=== PATIENT | female | born 1975 ===

== ENCOUNTER 2018-08-03 19:32 | Observation (INO) | payer BC, SELFPAY ==
[2018-08-03 19:43] VITALS: BMI 27.1
[2018-08-03] MEDS ORDERED: Morphine 2 mg/ml ISec IVP STA (20:02)
[2018-08-03] MEDS ORDERED: Sodium Chloride 0.9% 1,000 ML IV STA (20:02)
[2018-08-03] MEDS ORDERED: DiphenhydrAMINE 50 mg/ml Inj IVP STA (20:37)
[2018-08-03] MEDS ORDERED: DiphenhydrAMINE 50 mg/ml Inj ONE (20:40)
[2018-08-03 20:50] LABS: ALB/GLOB RATIO 1.1 (1.1-1.8); ALBUMIN 4.2 g/dL (3.0-4.8); ALT/SGPT 23 U/L (7-56); AST/SGOT 32 U/L (14-36); BLOOD UREA NITROGEN 12 mg/dL (7-21); GFR NON-AFRICAN AMERICAN > 60
[2018-08-03 20:58] LABS: PH,URINE 7.5 (4.7-8.0); URINE BILIRUBIN NEGATIVE (NEGATIVE); URINE BLOOD NEGATIVE (NEGATIVE); URINE GLUCOSE (UA) NEGATIVE (NEGATIVE); URINE LEUKOCYTE ESTERASE NEGATIVE Leu/uL (NEGATIVE); URINE PROTEIN NEGATIVE mg/dL (<30 mg/dL); URINE UROBILINOGEN 0.2 E.U./dL (<1 E.U./dL)
[2018-08-03 21:03] LABS: BASO # 0.02 K/mm3 (0.0-2.0); BASO % 0.1 % (0.0-3.0); EOS % 0.1 % (1.5-5.0); GRAN # 13.49 (1.4-6.5); GRAN % 87.5 % (50.0-68.0); HEMOGLOBIN 12.9 g/dL (12.0-16.0); LYMPH # 1.4 (1.2-3.4); LYMPH % 9.1 % (22.0-35.0); MEAN CELL VOLUME 88.8 fl (80.0-105.0); MEAN CORPUSCULAR HGB CONC 33.8 g/dl (31.0-37.0); MEAN PLATELET VOLUME 10.2 fl (7.0-11.0); MONO # 0.5 (0.1-0.6); MONO % 3.2 % (1.0-6.0); RBC 4.3 10^6/uL (3.5-6.1); RED CELL DISTRIBUTION WIDTH 14.8 % (11.5-14.5); WHITE BLOOD COUNT 15.4 10^3/ul (4.5-11.0)
[2018-08-03 21:23] LABS: URINE APPEARANCE CLOUDY (CLEAR); URINE COLOR YELLOW (YELLOW)
[2018-08-03] MEDS ORDERED: Iohexol 350 MG/100 ML VIAL ONE (21:35)
[2018-08-03 22:03] LABS: URINE BACTERIA LARGE (NEG); URINE EPITHELIAL CELLS 0 - 2 /hpf (0-5); URINE WBC 0 - 2 /hpf (0-6)
--- NOTE | 2018-08-03 22:07 | ED PDOC ---
Arrival/HPI - General Historian: Patient - History of Present Illness Narrative History of Present Illness (Text): 08/03/18 22:02 43-year-old female presents today with upper abdominal pain that started at 11 AM this morning. Patient states the pain is sharp and stabbing. Patient states that the pain is across the upper abdomen. She is complaining of nausea and vomiting. No diarrhea. Patient denies chest pain or shortness of breath. She denies back pain. No medications were taken for pain at home. Patient denies dysuria or urinary frequency. She denies vaginal bleeding or discharge. Patient states she has a history of a tummy tuck. No other complaints Time/Duration: Other (11am) Symptom Onset: Sudden Symptom Course: Worsening Quality: Stabbing Severity Level: Moderate <Karla Reynolds - Last Filed: 08/04/18 01:18> <Gomez Valdez - Last Filed: 08/04/18 06:00> - General Chief Complaint: GI Problem Time Seen by Provider: 08/03/18 19:55 Past Medical History - Provider Review Nursing Documentation Reviewed: Yes - Travel History Have you recently traveled outside [place] w/in the past 3 mons?: No - Past History Past History: Non-Contributing - Infectious Disease Hx of Infectious Diseases: None - Tetanus Immunization Tetanus Immunization: Unknown - Psychiatric Hx Depression: No Hx Emotional Abuse: No Hx Physical Abuse: No Hx Substance Use: No - Surgical History Hx Section: Yes (x3) Other/Comment: 'Lipectomy' - Anesthesia Hx Anesthesia: Yes Hx Anesthesia Reactions: No - Suicidal Assessment Feels Threatened In Home Enviroment: No <Karla Reynolds - Last Filed: 08/04/18 01:18> Family/Social History - Physician Review Nursing Documentation Reviewed: Yes Family/Social History: Unknown Family HX Smoking Status: Never Smoked Hx Alcohol Use: No Hx Substance Use: No Hx Substance Use Treatment: No <Karla Reynolds - Last Filed: 08/04/18 01:18> Allergies/Home Meds <Karla Reynolds - Last Filed: 08/04/18 01:18> <Gomez Valdez - Last Filed: 08/04/18 06:00> Allergies/Adverse Reactions: Allergies morphine Adverse Reaction (Verified 08/04/18 02:02) ITCHING Review of Systems - Review of Systems Constitutional: absent: Fatigue, Fevers Respiratory: absent: SOB, Cough Cardiovascular: absent: Chest Pain, Palpitations Gastrointestinal: Abdominal Pain, Nausea, Vomiting. absent: Constipation, Meeta rrhea Genitourinary Female: absent: Dysuria, Frequency, Hematuria Musculoskeletal: absent: Arthralgias, Back Pain, Neck Pain Skin: absent: Rash, Pruritis Neurological: absent: Headache, Dizziness Psychiatric: absent: Anxiety, Depression, Suicidal Ideation <Karla Reynolds - Last Filed: 08/04/18 01:18> Physical Exam Vital Signs Reviewed: Yes Vital Signs Temp Pulse Resp BP Pulse Ox 08/03/18 21:51 65 18 121/74 98 08/03/18 19:43 97.9 F 63 22 116/73 99 Temperature: Afebrile Blood Pressure: Normal Pulse: Regular Respiratory Rate: Normal Appearance: Positive for: Well-Appearing, Non-Toxic, Comfortable Pain Distress: None Mental Status: Positive for: Alert and Oriented X 3 - Systems Exam Head: Present: Atraumatic Mouth: Present: Moist Mucous Membranes Neck: Present: Normal Range of Motion Respiratory/Chest: Present: Clear to Auscultation, Good Air Exchange. No: R espiratory Distress, Accessory Muscle Use Cardiovascular: Present: Regular Rate and Rhythm, Normal S1, S2. No: Murmurs Abdomen: Present: Tenderness (+ RUQ/LUQ and epigastric tenderness, RLQ tenderness. periumbilical tenderness). No: Distention, Rebound, Guarding Back: Present: Normal Inspection. No: CVA Tenderness, Midline Tenderness, Paraspinal Tenderness Upper Extremity: Present: Normal ROM Lower Extremity: Present: Normal ROM Neurological: Present: GCS=15, Speech Normal Skin: Present: Warm, Dry, Normal Color. No: Rashes Psychiatric: Present: Alert, Oriented x 3 <Karla Reynolds - Last Filed: 08/04/18 01:18> Vital Signs Temp Pulse Resp BP Pulse Ox 08/04/18 01:51 20 08/03/18 21:51 65 18 121/74 98 08/03/18 19:43 97.9 F 63 22 116/73 99 <Gomez Valdez - Last Filed: 08/04/18 06:00> Medical Decision Making ED Course and Treatment: 08/03/18 22:05 Patient is nontoxic well appearing with stable vital signs presenting with severe abdominal pain pt given morphine for pain; developed pruritis and slight rash; benadryl given IV> CBC wbc;15.4 CMP wnl Lipase wnl Urinalysis + nitrates Ultrasound: FINDINGS: LIVER: Unremarkable. GALLBLADDER: No gallstone. No gallbladder wall thickening. No pericholecystic fluid. COMMON BILE DUCT: No dilation. 3.6 mm. PANCREAS: Unremarkable where visualized. The distal pancreas is obscured by overlying bowel gas. KIDNEYS: Unremarkable. Normal renal contours. No renal mass or calculus. No hydronephrosis. SPLEEN: Unremarkable. AORTA: No aneurysm. IVC: Unremarkable as visualized. MISCELLANEOUS: No other significant findings identified. IMPRESSION: Unremarkable complete abdominal ultrasound. CAT scan: Findings:this study is extremely limited secondary to respiratory motion except for the retroperitoneal structures.the gallbladder and solid abdominal viscera appear intact. There is a significant amount of free pelvic fluid.endometrial cavity appears widened by fluid.both kidneys uptake contrast symmetrically.the appendix is nonvisualized certainty. There are no right lower quadrant inflammatory changes. Impression: Very limited study. Free pelvic fluid. will start zosyn and flagyl IV. Patient reassessment: pt with continued pain; pain has now migrated to lower abdomen. case discussed with surgical garment fitter; who saw patient at bedside. He reviewed CT. he is concerned for appendicitis. case discussed with dr. coombs; accepts observational status admission. Case was discussed with Dr. Hoffman in depth; Impression: Abdominal pain r/o appendicitis. admit observational status dr. coombs. Reassessment Condition: Re-examined, Unchanged - Lab Interpretations Lab Results: 08/03/18 20:24 08/03/18 20:24 Lab Results 08/03/18 20:24: Lipase 63 08/03/18 20:24: Urine Color Yellow, Urine Appearance Cloudy, Urine pH 7.5, Ur Specific [place] 1.015, Urine Protein Negative, Urine Glucose (UA) Negative, Urine Ketones 40 H, Urine Blood Negative, Urine Nitrate Positive H, Urine Bilirubin Negative, Urine Urobilinogen 0.2, Ur Leukocyte Esterase Negative, Urine RBC Pending, Urine WBC Pending 08/03/18 20:24: WBC 15.4 H, RBC 4.30, Hgb 12.9, Hct 38.2, MCV 88.8, MCH 30.0, MCHC 33.8, RDW 14.8 H, Plt Count 214, MPV 10.2, Gran % 87.5 H, Lymph % (Auto) 9.1 L, [place] % (Auto) 3.2, Eos % (Auto) 0.1 L, Baso % (Auto) 0.1, Gran # 13.49 H, Lymph # (Auto) 1.4, [place] # (Auto) 0.5, Eos # (Auto) 0.0, Baso # (Auto) 0.02 08/03/18 20:24: Sodium 137, Potassium 3.7, Chloride 108 H, Carbon Dioxide 18 L, Anion Gap 15, BUN 12, Creatinine 0.7, Est GFR ( Amer) > 60, Est GFR (Non- Af Amer) > 60, Random Glucose 104, Calcium 9.0, Total Bilirubin 0.6, AST 32, ALT 23, Alkaline Phosphatase 49, Total Protein 8.2, Albumin 4.2, Globulin 3.9, Albumin/Globulin Ratio 1.1 - RAD Interpretation Radiology Orders: 08/03/18 20:01 ABDOMEN COMPLETE [US] Stat 08/03/18 21:27 ABD & PELVIS IV CONTRAST ONLY [CT] Stat - Medication Orders Current Medication Orders: Discontinued Medications Diphenhydramine HCl (Benadryl) 50 mg IVP STAT STA Stop: 08/03/18 20:38 Last Admin: 08/03/18 20:41 Dose: 50 mg IVP Administration Document 08/03/18 20:41 W[place] (Rec: 08/03/18 20:41 HI [id number]) Charges for Administration # of IVP Administrations 1 Sodium Chloride (Sodium Chloride 0.9%) 1,000 mls @ 999 mls/hr IV .Q1H1M STA Stop: 08/03/18 21:02 Last Admin: 08/03/18 20:37 Dose: 999 mls/hr eMAR Start Stop Document 08/03/18 20:37 SS (Rec: 08/03/18 20:37 SS [facility] [id number] Intravenous Solution Start Date 08/03/18 Start Time 20:37 End Date 08/03/18 End time 21:37 Total Infusion Time 60 Morphine Sulfate (Morphine) 2 mg IVP STAT STA Stop: 08/03/18 20:03 Last Admin: 08/03/18 20:36 Dose: 2 mg MAR Pain Assessment Document 08/03/18 20:36 SS (Rec: 08/03/18 20:37 SS [place] [id number]) Pain Reassessment Is this a pain reassessment? No IVP Administration Document 08/03/18 20:36 SS (Rec: 08/03/18 20:37 SS [place] [id number]) Charges for Administration # of IVP Administrations 1 Ondansetron HCl (Zofran Inj) 4 mg IVP STAT STA Stop: 08/03/18 20:05 Last Admin: 08/03/18 20:37 Dose: 4 mg IVP Administration Document 08/03/18 20:37 SS (Rec: 08/03/18 20:37 SS [place] [id number]) Charges for Administration # of IVP Administrations 1 Pantoprazole Sodium (Protonix Inj) 40 mg IVP STAT STA Stop: 08/03/18 20:03 Last Admin: 08/03/18 20:37 Dose: 40 mg IVP Administration Document 08/03/18 20:37 SS (Rec: 08/03/18 20:37 SS [place] [id number]) Charges for Administration # of IVP Administrations 1 <Karla Reynolds T - Last Filed: 08/04/18 01:18> - Lab Interpretations Lab Results: 08/03/18 20:24 08/03/18 20:24 Lab Results 08/03/18 20:24: Lipase 63 08/03/18 20:24: Urine Color Yellow, Urine Appearance Cloudy, Urine pH 7.5, Ur Specific [place] 1.015, Urine Protein Negative, Urine Glucose (UA) Negative, Urine Ketones 40 H, Urine Blood Negative, Urine Nitrate Positive H, Urine Bilirubin Negative, Urine Urobilinogen 0.2, Ur Leukocyte Esterase Negative, Urine RBC 1 - 3, Urine WBC 0 - 2, Ur Epithelial Cells 0 - 2, Urine Bacteria Large 08/03/18 20:24: WBC 15.4 H, RBC 4.30, Hgb 12.9, Hct 38.2, MCV 88.8, MCH 30.0, MCHC 33.8, RDW 14.8 H, Plt Count 214, MPV 10.2, Gran % 87.5 H, Lymph % (Auto) 9.1 L, [place] % (Auto) 3.2, Eos % (Auto) 0.1 L, Baso % (Auto) 0.1, Gran # 13.49 H, Lymph # (Auto) 1.4, [place] # (Auto) 0.5, Eos # (Auto) 0.0, Baso # (Auto) 0.02 08/03/18 20:24: Sodium 137, Potassium 3.7, Chloride 108 H, Carbon Dioxide 18 L, Anion Gap 15, BUN 12, Creatinine 0.7, Est GFR ( Amer) > 60, Est GFR (Non- Af Amer) > 60, Random Glucose 104, Calcium 9.0, Total Bilirubin 0.6, AST 32, ALT 23, Alkaline Phosphatase 49, Total Protein 8.2, Albumin 4.2, Globulin 3.9, Albumin/Globulin Ratio 1.1 - RAD Interpretation Radiology Orders: 08/03/18 20:01 ABDOMEN COMPLETE [US] Stat 08/03/18 21:27 ABD & PELVIS IV CONTRAST ONLY [CT] Stat - Medication Orders Current Medication Orders: Metronidazole (Flagyl) 500 mg in 100 mls @ 100 mls/hr IVPB Q6 BRANDI; Protocol Last Admin: 08/04/18 05:28 Dose: 100 mls/hr eMAR Start Stop Document 08/04/18 05:28 FC (Rec: 08/04/18 05:28 FC [id number]) Intravenous Solution Start Date 08/04/18 Start Time 05:28 End Date 08/04/18 End time 06:28 Total Infusion Time 60 Ceftriaxone Sodium (Rocephin 1 Gram Ivpb) 1 gm in 100 mls @ 100 mls/hr IVPB DAILY BRANDI; Protocol Lactated Ringer's (Lactated Ringer's) 1,000 mls @ 125 mls/hr IV .Q8H BRANDI Last Admin: 08/04/18 01:55 Dose: 125 mls/hr eMAR Start Stop Document 08/04/18 01:55 SS (Rec: 08/04/18 01:55 SS [id number]) Intravenous Solution Start Date 08/04/18 Start Time 01:50 Ketorolac Tromethamine (Toradol) 30 mg IVP Q6H PRN PRN Reason: Pain, moderate (4-7) Last Admin: 08/04/18 01:50 Dose: 30 mg MAR Pain Assessment Document 08/04/18 01:50 SS (Rec: 08/04/18 01:55 SS [id number]) Pain Reassessment Is this a pain reassessment? Yes Sleep Is patient sleeping during reassessment? No Presence of Pain Presence of Pain Yes Pain Scale Used Protocol: PSCALES Pain Scale Used Numeric Location Pain Location Body Site Abdomen IVP Administration Document 08/04/18 01:50 SS (Rec: 08/04/18 01:55 SS [id number]) Charges for Administration # of IVP Administrations 1 Discontinued Medications Diphenhydramine HCl (Benadryl) 50 mg IVP STAT STA Stop: 08/03/18 20:38 Last Admin: 08/03/18 20:41 Dose: 50 mg IVP Administration Document 08/03/18 20:41 HI (Rec: 08/03/18 20:41 HI [id number]) Charges for Administration # of IVP Administrations 1 Hydromorphone HCl (Dilaudid) 0.5 mg IVP STAT STA Stop: 08/04/18 02:20 Last Admin: 08/04/18 02:30 Dose: 0.5 mg [facility] Pain Assessment Document 08/04/18 02:30 FC (Rec: 08/04/18 02:31 FC [facility] [id number] Pain Reassessment Is this a pain reassessment? No Presence of Pain Presence of Pain Yes Location Left, Right or Bilateral Bilateral Pain Location Body Site Abdomen Description Description Nausea Present Pain Behavior Guarding Facial Grimacing Aggravating Factors None Alleviating Factors/Management Medication Techniques Alleviating Factors Medication IVP Administration Document 08/04/18 02:30 FC (Rec: 08/04/18 02:31 FC [facility] [id number] Charges for Administration # of IVP Administrations 1 Re-Assess: MAR Pain Assessment Document 08/04/18 03:30 FC (Rec: 08/04/18 05:27 FC [facility] [id number] Pain Reassessment Is this a pain reassessment? Yes Sleep Is patient sleeping during reassessment? Yes Sodium Chloride (Sodium Chloride 0.9%) 1,000 mls @ 999 mls/hr IV .Q1H1M STA Stop: 08/03/18 21:02 Last Admin: 08/03/18 20:37 Dose: 999 mls/hr eMAR Start Stop Document 08/03/18 20:37 SS (Rec: 08/03/18 20:37 [place] [facility] [place] [facility] [place] Intravenous Solution Start Date 08/03/18 Start Time 20:37 End Date 08/03/18 End time 21:37 Total Infusion Time 60 Metronidazole (Flagyl) 500 mg in 100 mls @ 100 mls/hr IVPB STAT STA; Protocol Stop: 08/04/18 01:08 Piperacillin Sod/Tazobactam Sod (Zosyn 3.375 In Ns 100ml) 100 mls @ 200 mls/hr IVPB STAT STA; Protocol Stop: 08/04/18 00:38 Last Admin: 08/04/18 00:57 Dose: 200 mls/hr eMAR Start Stop Document 08/04/18 00:57 SS (Rec: 08/04/18 00:58 SS [id number]) Intravenous Solution Start Date 08/04/18 Start Time 00:58 End Date 08/04/18 End time 01:28 Total Infusion Time 30 Ketorolac Tromethamine (Toradol) 30 mg IVP Q6H PRN PRN Reason: pain Morphine Sulfate (Morphine) 2 mg IVP STAT STA Stop: 08/03/18 20:03 Last Admin: 08/03/18 20:36 Dose: 2 mg MAR Pain Assessment Document 08/03/18 20:36 SS (Rec: 08/03/18 20:37 [place] [facility] [place] Pain Reassessment Is this a pain reassessment? No IVP Administration Document 08/03/18 20:36 SS (Rec: 08/03/18 20:37 [place] [facility] [place] Charges for Administration # of IVP Administrations 1 Ondansetron HCl (Zofran Inj) 4 mg IVP STAT STA Stop: 08/03/18 20:05 Last Admin: 08/03/18 20:37 Dose: 4 mg IVP Administration Document 08/03/18 20:37 SS (Rec: 08/03/18 20:37 [place] [facility] [place] Charges for Administration # of IVP Administrations 1 Ondansetron HCl (Zofran Inj) 4 mg IVP ONCE ONE Stop: 08/04/18 02:20 Last Admin: 08/04/18 02:31 Dose: 4 mg IVP Administration Document 08/04/18 02:31 FC (Rec: 08/04/18 02:32 FC [facility] [id number] Charges for Administration # of IVP Administrations 1 Pantoprazole Sodium (Protonix Inj) 40 mg IVP STAT STA Stop: 08/03/18 20:03 Last Admin: 08/03/18 20:37 Dose: 40 mg IVP Administration Document 08/03/18 20:37 SS (Rec: 08/03/18 20:37 SS [facility] [place] Charges for Administration # of IVP Administrations 1 <Gomez Valdez - Last Filed: 08/04/18 06:00> - PA / TRUCKLOAD CHECKER / Resident Statement / has reviewed & agrees with the documentation as recorded. <Gomez Valdez - Last Filed: 08/04/18 06:00> Disposition/Present on Arrival - Present on Arrival Any Indicators Present on Arrival: No History of DVT/PE: No History of Uncontrolled Diabetes: No Urinary Catheter: No History of Decub. Ulcer: No History Surgical Site Infection Following: None - Disposition Have Diagnosis and Disposition been Completed?: Yes Disposition Time: 23:00 Patient Plan: Observation <Karla Reynolds - Last Filed: 08/04/18 01:18> <Gomez Valdez - Last Filed: 08/04/18 06:00> - Disposition Diagnosis: Abdominal pain, Leukocytosis Disposition: HOSPITALIZED Patient Problems: Current Active Problems Problem Status Onset Abdominal pain Acute Leukocytosis Acute Condition: FAIR
[2018-08-04] MEDS ORDERED: Piperacillin/Tazobact 3.375 gm 100 ML IVPB STA (00:09)
[2018-08-04] MEDS ORDERED: metroNIDAZOLE IV 500 mg/100 ml 500 MG/100 ML BAG IVPB STA (00:09)
[2018-08-04 01:08] LABS: VENOUS BLOOD GAS BASE EXCESS -3.6 mmol/L (0.0-2.0); VENOUS BLOOD GAS PO2 55 mm/Hg (30-55); VENOUS BLOOD PH 7.36 (7.32-7.43)
--- NOTE | 2018-08-04 01:16 | CP.PCM.CON ---
History of Present Illness - History of Present Illness History of Present Illness: 43F with pmh of DVT s/p abdominoplasty presents to [facility] with complaints of abdominal pain. Patient states pain began yesterday morning after eating corn cake with cheese. She reports onset of abdominal pain was about an hour after ea ting. States initially abdominal pain was vague. As time went on abdominal pain began migrating towards lower abdominal region. Pt reports having multiple bouts of non-bloody emesis. She states she also had chills. At time of examination patient reported anorexia,lower abdominal pain which was controlled with analgesics and nausea. Patient denies headaches/dizziness, chest pain, shortness of breath, dysuria. PMH: Hx of DVT ~8 months ago, treated with anticoagulation therapy for 3 months PSH: abdominoplasty Allergies: ?morphine (rash) Soc Hx: Denies smoking, drinking, illicit drug use Review of Systems - Review of Systems Review of Systems: 10 pt ROS unremarkable except as stated in HPI Past Patient History - Infectious Disease Hx of Infectious Diseases: None - Tetanus Immunizations Tetanus Immunization: Unknown - Past Social History Smoking Status: Never Smoked - PSYCHIATRIC Hx Depression: No Hx Emotional Abuse: No Hx Physical Abuse: No Hx Substance Use: No - SURGICAL HISTORY Hx Section: Yes (x3) Other/Comment: 'Lipectomy' - ANESTHESIA Hx Anesthesia: Yes Hx Anesthesia Reactions: No Meds Allergies/Adverse Reactions: Allergies Allergy/AdvReac Type Severity Reaction Status Date / Time morphine AdvReac ITCHING Verified 08/04/18 02:02 - Medications Medications: Current Medications Metronidazole (Flagyl) 500 mg in 100 mls @ 100 mls/hr IVPB Q6 BRANDI; Protocol Ceftriaxone Sodium (Rocephin 1 Gram Ivpb) 1 gm in 100 mls @ 100 mls/hr IVPB DAILY BRANDI; Protocol Lactated Ringer's (Lactated Ringer's) 1,000 mls @ 125 mls/hr IV .Q8H BRANDI Ketorolac Tromethamine (Toradol) 30 mg IVP Q6H PRN PRN Reason: pain Physical Exam - Constitutional Appears: No Acute Distress - Head Exam Head Exam: NORMOCEPHALIC - Eye Exam Eye Exam: EOMI, Normal appearance - ENT Exam ENT Exam: Mucous Membranes Moist - Respiratory Exam Respiratory Exam: NORMAL BREATHING PATTERN - Cardiovascular Exam Cardiovascular Exam: +S1, +S2 - GI/Abdominal Exam GI & Abdominal Exam: Guarding, Soft, Tenderness. absent: Distended, Firm - Rectal Exam Additional comments: lower abdominal tenderness - Neurological Exam Neurological exam: Alert, Oriented x3 - Psychiatric Exam Psychiatric exam: Normal Mood - Skin Skin Exam: Dry, Intact, Warm Results - Vital Signs Recent Vital Signs: Last Vital Signs Temp 97.9 F 08/03/18 19:43 Pulse 65 08/03/18 21:51 Resp 18 08/03/18 21:51 BP 121/74 08/03/18 21:51 Pulse Ox 98 08/03/18 21:51 - Labs Result Diagrams: 08/04/18 06:30 08/04/18 06:30 Labs: Laboratory Results - last 24 hr 08/03/18 08/03/18 08/03/18 20:24 20:24 20:24 WBC 15.4 H RBC 4.30 Hgb 12.9 Hct 38.2 MCV 88.8 MCH 30.0 MCHC 33.8 RDW 14.8 H Plt Count 214 MPV 10.2 Gran % 87.5 H Lymph % (Auto) 9.1 L [place] % (Auto) 3.2 Eos % (Auto) 0.1 L Baso % (Auto) 0.1 Gran # 13.49 H Lymph # (Auto) 1.4 [place] # (Auto) 0.5 Eos # (Auto) 0.0 Baso # (Auto) 0.02 pO2 VBG pH VBG pCO2 VBG HCO3 VBG Total CO2 VBG O2 Sat (Calc) VBG Base Excess VBG Potassium Glucose Lactate FiO2 Sodium 137 Potassium 3.7 Chloride 108 H Carbon Dioxide 18 L Anion Gap 15 BUN 12 Creatinine 0.7 Est GFR ( Amer) > 60 Est GFR (Non-Af Amer) > 60 Random Glucose 104 Calcium 9.0 Total Bilirubin 0.6 AST 32 ALT 23 Alkaline Phosphatase 49 Total Protein 8.2 Albumin 4.2 Globulin 3.9 Albumin/Globulin Ratio 1.1 Lipase Venous Blood Potassium Urine Color Yellow Urine Appearance Cloudy Urine pH 7.5 Ur Specific [place] 1.015 Urine Protein Negative Urine Glucose (UA) Negative Urine Ketones 40 H Urine Blood Negative Urine Nitrate Positive H Urine Bilirubin Negative Urine Urobilinogen 0.2 Ur Leukocyte Esterase Negative Urine RBC 1 - 3 Urine WBC 0 - 2 Ur Epithelial Cells 0 - 2 Urine Bacteria Large 08/03/18 08/04/18 20:24 00:52 WBC RBC Hgb Hct MCV MCH MCHC RDW Plt Count MPV Gran % Lymph % (Auto) [place] % (Auto) Eos % (Auto) Baso % (Auto) Gran # Lymph # (Auto) [place] # (Auto) Eos # (Auto) Baso # (Auto) pO2 55 VBG pH 7.36 VBG pCO2 38.0 L VBG HCO3 21.5 VBG Total CO2 22.7 VBG O2 Sat (Calc) 91.4 H VBG Base Excess -3.6 L VBG Potassium 4.1 Glucose 119 H Lactate 1.1 FiO2 21.0 Sodium 134.0 Potassium Chloride 107.0 Carbon Dioxide Anion Gap BUN Creatinine Est GFR ( Amer) Est GFR (Non-Af Amer) Random Glucose Calcium Total Bilirubin AST ALT Alkaline Phosphatase Total Protein Albumin Globulin Albumin/Globulin Ratio Lipase 63 Venous Blood Potassium 4.1 Urine Color Urine Appearance Urine pH Ur Specific [place] Urine Protein Urine Glucose (UA) Urine Ketones Urine Blood Urine Nitrate Urine Bilirubin Urine Urobilinogen Ur Leukocyte Esterase Urine RBC Urine WBC Ur Epithelial Cells Urine Bacteria Assessment & Plan - Assessment and Plan (Free Text) Assessment: 43F with appendicitis Plan: NPO IVF ABx Analgesics prn Anti-emetics prn Manley score 8/10, appendicitis- likely Will plan for OR for laparoscopic appendectomy possible open D/w Dr. Yasmin Edwards PGY3
[2018-08-04] MEDS: Lactated Ringer's 1,000 ML IV SCH ×2 (01:55→10:27)
[2018-08-04] MEDS ORDERED: HYDROmorphone 1 mg/ml ISec IVP STA ×2 (02:19→13:40)
[2018-08-04] MEDS: metroNIDAZOLE IV 500 mg/100 ml 500 MG/100 ML BAG IVPB SCH ×4 (05:28→23:12)
[2018-08-04] MEDS ORDERED: Bupivacaine 0.5% 50 ML IJ ONE (06:42)
[2018-08-04 07:05] LABS: BASO # 0.02 K/mm3 (0.0-2.0); BASO % 0.1 % (0.0-3.0); GRAN # 14.87 (1.4-6.5); GRAN % 81.1 % (50.0-68.0); HEMOGLOBIN 11.7 g/dL (12.0-16.0); LYMPH # 2.1 (1.2-3.4); LYMPH % 11.2 % (22.0-35.0); MEAN CELL VOLUME 88.5 fl (80.0-105.0); MEAN CORPUSCULAR HEMOGLOBIN 29.9 pg (25.0-35.0); MEAN CORPUSCULAR HGB CONC 33.8 g/dl (31.0-37.0); MEAN PLATELET VOLUME 10.3 fl (7.0-11.0); MONO # 1.4 (0.1-0.6); MONO % 7.6 % (1.0-6.0); RBC 3.91 10^6/uL (3.5-6.1); RED CELL DISTRIBUTION WIDTH 14.7 % (11.5-14.5); WHITE BLOOD COUNT 18.4 10^3/ul (4.5-11.0)
[2018-08-04] MEDS ORDERED: Midazolam 2 MG/2 ML VIAL ONE (07:11)
[2018-08-04] MEDS ORDERED: Propofol 10 mg/ml Inj (20 ML) ONE (07:11)
[2018-08-04 07:15] LABS: INR 1.1; PARTIAL THROMBOPLASTIN TIME 25.2 Seconds (25.1-36.5); PROTHROMBIN TIME 12.7 SECONDS (9.4-12.5)
[2018-08-04 07:22] LABS: BLOOD UREA NITROGEN 9 mg/dL (7-21); CALCIUM 8.2 mg/dL (8.4-10.5); GFR NON-AFRICAN AMERICAN > 60
[2018-08-04] MEDS ORDERED: Rocuronium 10 mg/ml (5 ml) ONE (07:26)
[2018-08-04] MEDS ORDERED: Neostigmine Methylsulfate 3mg/3ml Syringe IV ONE (08:09)
[2018-08-04] MEDS ORDERED: Glycopyrrolate 0.2 mg/ml (2ml vial) ONE (08:10)
--- NOTE | 2018-08-04 08:44 | PCM.SURG1 ---
Surgeon's Initial Post Op Note - Surgeon's Notes Surgeon: Dr. Hoffman Manpower Development Advisor: Dr. Macdonald Type of Anesthesia: General Endo Pre-Operative Diagnosis: acute appendicitis Operative Findings: acute appendicitis Post-Operative Diagnosis: same Operation Performed: laparoscopic appendectomy Specimen/Specimens Removed: appendix Estimated Blood Loss: EBL {In ML}: 2 Blood Products Given: N/A Drains Used: No Drains Post-Op Condition: Good Date of Surgery/Procedure: 08/04/18 Time of Surgery/Procedure: 07:30
[2018-08-04] MEDS ORDERED: HYDROmorphone 0.5 mg/0.5 ml ISec IVP PRN (08:53)
[2018-08-04] MEDS ORDERED: Lactated Ringer's 1,000 ML IV SCH (09:00)
--- NOTE | 2018-08-04 09:02 | CT ---
Date of service: 08/03/2018 PROCEDURE: CT Abdomen and Pelvis with contrast HISTORY: abd pain COMPARISON: None. TECHNIQUE: Contrast dose: 93 cc of Omni 350 Radiation dose: Total exam DLP = 680 mGy-cm. This CT exam was performed using one or more of the following dose reduction techniques: Automated exposure control, adjustment of the mA and/or kV according to patient size, and/or use of iterative reconstruction technique. FINDINGS: LOWER THORAX: Unremarkable. LIVER: Unremarkable. No gross lesion or ductal dilatation. GALLBLADDER AND BILE DUCTS: Unremarkable. PANCREAS: Unremarkable. No gross lesion or ductal dilatation. SPLEEN: Unremarkable. ADRENALS: Unremarkable. No mass. KIDNEYS AND URETERS: Unremarkable. No hydronephrosis. No solid mass. VASCULATURE: Unremarkable. No aortic aneurysm. BOWEL: Unremarkable. No obstruction. No gross mural thickening. APPENDIX: The appendix is distended and filled with fluid. The appendix also contains several appendicoliths. The appendix extends deep into the pelvis with the tip of the appendix adjacent to the rectum. Diameter 12 mm. PERITONEUM: Unremarkable. No free fluid. No free air. LYMPH NODES: Unremarkable. No enlarged lymph nodes. BLADDER: Unremarkable. REPRODUCTIVE: Unremarkable. BONES: No acute fracture. OTHER FINDINGS: There is a discrepancy with the [place] rad report. This was discussed with Dr. Rees at 9 a.m. 08/04/2018. The clinical chart shows that the patient was seen by surgery and the appendix was removed. IMPRESSION: Acute appendicitis
--- NOTE | 2018-08-04 10:14 | CARD ---
APPROVED REPORT Date of service: 08/03/2018 EKG Measurement Heart [id number] [id number] <Conclusion> Normal sinus rhythm with sinus arrhythmia Normal ECG
[2018-08-04] MEDS: cefTRIAXone 1 gm 1 GM/100 ML BAG IVPB SCH (10:27)
[2018-08-04] MEDS: Oxycodone/Acetaminophen 5/325 mg Tab PO PRN ×2 (10:34→22:28)
[2018-08-04] MEDS ORDERED: HYDROmorphone 0.5 mg/0.5 ml ISec IVP STA (13:37)
--- NOTE | 2018-08-04 14:20 | PCM.RRT ---
<Morales Pak - Last Filed: 08/04/18 14:50> SPRAY II PAINTER Nurse Assessment - Situation Date: 08/04/18 Time SPRAY II PAINTER was called: 13:22 SPRAY II PAINTER Responder Arrival Time: 13:23 SPRAY II PAINTER Location:: [address] [place] [address] Room Number: [id number] SPRAY II PAINTER Reason for Call: Chest Pain SPRAY II PAINTER Called By: RN - IV IV Inserted during SPRAY II PAINTER?: No - Respiratory Received Nebulizer Treatments:: No Was the Patient Ventilated with Bag/Mask 100% O2?: No Secretions Suctioned?: No Was the Patient Intubated?: No - Medication Medications Administered During SPRAY II PAINTER: Dilaudid - Diagnostic Test Ordered EKG: No Chest X-Ray: Yes CT Scan: Yes - Stat Labs Ordered SPRAY II PAINTER Stat Labs Ordered: ABG CPR started during SPRAY II PAINTER?: No - Vital Signs Vital Sign: Rapid Response Vital Sign Blood Pressure 138/91 Pulse Rate 112 Respiratory Rate 24 Temperature 98.2 F Oxygen Saturation 95 - Finger Stick Blood Glucose Finger Stick Blood Glucose: 95 - Constitutional Appears: In Acute Distress - Head Head Exam: ATRAUMATIC, NORMAL INSPECTION, NORMOCEPHALIC - Eyes Eye Exam: Normal appearance - Respiratory Exam Respiratory Exam: Clear to Ausculation Bilateral, NORMAL BREATHING PATTERN - Cardiovascular Exam Cardiovascular Exam: Tachycardia, +S1, +S2 - GI/Abdominal Exam GI & Abdominal Exam: Guarding, Tenderness - Neurological Exam Neurological Exam: Alert, Awake, Oriented x3 Plan - Assessment of Findings&Treatment Plan Rapid Response was called by nursing staff after patient was complaining of unbearable abdominal and neck pain. Patient had laprosopic appendectomy done earlier today. Vitals were taken, patient was tachycardic. Patient was given 1mg morphine for pain control and CT Chest with PE protocol was ordered. Surgery was made aware and patient was also examined by surgery resident who reached out to Dr. Burks. Trops were also ordered. Will continue to monitor. <Malka Bah - Last Filed: 08/09/18 11:58> SPRAY II PAINTER Nurse Assessment - Vital Signs Vital Sign: Rapid Response Vital Sign Blood Pressure 138/91 Pulse Rate 112 Respiratory Rate 24 Temperature 98.2 F Oxygen Saturation 95 Attending/Attestation - Attestation I have personally seen and examined this patient.: Yes I have fully participated in the care of the patient.: Yes I have reviewed all pertinent clinical information, including history, physical exam and plan: Yes Notes (Text): Patient seen and examined by me with resident at 1:23PM with resident 08/04/18. Case including HPI, physical exam, and assessment and plan discussed with resident. Agree with above with following additions/corrections. Rapid response called for uncontrolled neck pain and abdominal pain. Patient had appendectomy earlier today. Surgical team also at bedside. Dilaudid ordered. Patient unable to explain pain secondary to being in acute distress. Unable to obtain any history from patient. Physical exam: Gen: Awake and alert lying in bed in acute distress Cardiovascular: Tachycardic S1, S2. No murmurs, rubs, or gallops appreciated Pulmonary: Normal respiratory effort. No rhonchi, rales, or wheezing appreciated. Gastrointestinal: Soft. Mild distention. Positive generalized abdominal pain. Hypoactive bowel sounds all 4 quadrants, no guarding. Musculoskeletal: Moves all extremities.Positive cervical tenderness on right. Central nervous system: Awake and alert in acute distress. A/P: Abdominal pain/neck pain. CTA chest PE protocol ordered as patient had history of DVT. Neck CT ordered. Neuro notified. PMD notified. Will follow up results.
--- NOTE | 2018-08-04 14:51 | CT ---
Date of service: 08/04/2018 PROCEDURE: CT Abdomen and Pelvis with contrast HISTORY: intractable pain postop COMPARISON: Abdomen pelvis CT with contrast 08/03/2018 10:44 p.m.. TECHNIQUE: Following the intravenous administration of iodinated contrast material, a CT examination of the abdomen and pelvis performed from the domes of the diaphragms to the symphysis pubis with reformatted datasets provided in axial, sagittal and coronal planes. Oral contrast was not administered as per referring physician request. Coronal and sagittal reformats were generated. contrast dose: Omnipaque 350, 146 cc Radiation dose: Total exam DLP = 954.73 mGy-cm. This CT exam was performed using one or more of the following dose reduction techniques: Automated exposure control, adjustment of the mA and/or kV according to patient size, and/or use of iterative reconstruction technique. FINDINGS: LOWER THORAX: Limited bilateral basilar dependent atelectasis LIVER: Unremarkable. No gross lesion or ductal dilatation. GALLBLADDER AND BILE DUCTS: Unremarkable. PANCREAS: Unremarkable. No gross lesion or ductal dilatation. SPLEEN: Unremarkable. ADRENALS: Unremarkable. No mass. KIDNEYS AND URETERS: Unremarkable. No hydronephrosis. No solid mass. VASCULATURE: No aneurysmal dilatation of the abdominal aorta or significant change in caliber in the inferior vena cava. The images have been captured at the renal extra phase of contrast enhancement and small potential thrombi might be missed due to the suboptimal enhancement pattern for arterial evaluation. No definitive filling defect is appreciated in the visualized celiac and superior mesenteric arteries with the abdominal aorta felt to be widely patent. BOWEL: Suture material is identified at the prior location of the appendix. No obstruction. No gross mural thickening. Evaluation of the gastrointestinal tract is limited due to the lack of oral contrast administration. APPENDIX: Normal appendix. PERITONEUM: Postoperative free intra peritoneal gas is appreciated mildly in the abdomen and pelvis with gas identified at the operative site at the anterior abdominal wall. Emphysematous changes have migrated inferiorly into the pelvic wall subcutaneous fat as well. Limited pelvic ascites identified. LYMPH NODES: Unremarkable. No enlarged lymph nodes. BLADDER: Unremarkable. REPRODUCTIVE: Unremarkable. BONES: No acute fracture. OTHER FINDINGS: None. IMPRESSION: 1. Exam captured at renal extra phase of contrast enhancement as it was performed immediately after CT angiogram of the chest. No prominent stenosis or definitive filling defect is identified in the visualized celiac artery or superior mesenteric artery with the abdominal aorta felt to be widely patent as well at this time. If clinical concern remains then consider possible MR angiography with contrast. 2. Postoperative change identified in the lower abdomen and pelvis with chain sutures identified in the prior location of the appendix at the cecal base in the pelvis.
--- NOTE | 2018-08-04 14:57 | CT ---
Date of service: 08/04/2018 PROCEDURE: CT Chest with contrast (Pulmonary Angiogram) HISTORY: intractable pain post op COMPARISON: None available. TECHNIQUE: Axial computed tomography images were obtained of the chest in the pulmonary arterial phase of enhancement. Coronal and sagittal reformatted images were created and reviewed. Intravenous contrast dose: Omnipaque 350, 146 cc (same dose as given for abdomen pelvis CT, not repeated) Radiation dose: Total exam DLP = 469.31 mGy-cm. (Same dose as listed in abdomen pelvis CT performed immediately following this examination) This CT exam was performed using one or more of the following dose reduction techniques: Automated exposure control, adjustment of the mA and/or kV according to patient size, and/or use of iterative reconstruction technique. FINDINGS: PULMONARY ARTERIES: No definite CT evidence of pulmonary embolus at main and secondary pulmonary branches bilaterally. AORTA: Main pulmonary artery measures 3.2 cm in pulmonary artery hypertension is not excluded. Clinically correlate further. Right lateral ventricle volume is normal size as compared to the left lateral ventricle. Interventricular septum is also normal in position. No CT evidence to suggest right heart strain. No thoracic aortic aneurysm. LUNGS: Minimal bilateral basilar dependent atelectasis. Restrained motion degrades quality this examination somewhat. Limited atelectasis favored over infiltrate at the left apex a. Clinically correlate nevertheless. Central airways appear clear. PLEURAL SPACES: Unremarkable. No effusion or pneumothorax. HEART: Unremarkable. No cardiomegaly. No significant pericardial effusion. LYMPH NODES: No lymphadenopathy. BONES, CHEST WALL: Unremarkable. No fracture or destructive lesion OTHER FINDINGS: Unremarkable. IMPRESSION: 1. No CT evidence of pulmonary embolus as discussed above. 2. Trace bilateral basilar dependent atelectasis. 3. Limited atelectasis favored over infiltrate left upper lobe. Clinically correlate further. 4. Potential pulmonary artery hypertension though no ventricular strain is identified at this time.
--- NOTE | 2018-08-04 16:19 | RAD ---
Date of service: 08/04/2018 HISTORY: chest pain COMPARISON: No prior. FINDINGS: LUNGS: No active pulmonary disease. PLEURA: No significant pleural effusion identified, no pneumothorax apparent. CARDIOVASCULAR: Normal. OSSEOUS STRUCTURES: No significant abnormalities. VISUALIZED UPPER ABDOMEN: Normal. OTHER FINDINGS: None. IMPRESSION: No active disease.
--- NOTE | 2018-08-04 16:33 | US ---
Date of service: 08/03/2018 HISTORY: abdominal pain, upper COMPARISON: None. TECHNIQUE: Sonographic evaluation of the abdomen. FINDINGS: LIVER: Measures 14.8 cm. Normal echogenicity of the liver parenchyma. No mass. No intrahepatic bile duct dilatation. GALLBLADDER: Unremarkable. No gallstones. COMMON BILE DUCT: Measures 3.6 mm. No stones. No dilatation. PANCREAS: The tail of the pancreas is obscured by overlying bowel gas with remainder unremarkable. RIGHT KIDNEY: Measures 12.0cm. Normal echogenicity. No calculus, mass, or hydronephrosis. LEFT KIDNEY: Measures 11.4cm. Normal echogenicity. No calculus, mass, or hydronephrosis. SPLEEN: Normal in size and contour. No mass. AORTA: No aneurysmal dilatation. IVC: Unremarkable. OTHER FINDINGS: None. IMPRESSION: Limited imaging of the pancreas due to overlying bowel gas with examination otherwise unremarkable. Concordant preliminary report from [facility], 08/03/2018.
--- NOTE | 2018-08-04 17:04 | CP.PCM.CON ---
History of Present Illness - History of Present Illness History of Present Illness: Roxie Figueroa, PGY2, Neurology Consult Note for Dr Curtis: Reason for consult: neck pain, extremity weakness 43 year old female, referred by Dr Joyner, with PMH DVT, abdominoplasty, s/p laparoscopic appendectomy for acute appendicitis this AM, started complaining of acute neck pain, flaccid paralysis that started 2-3 hours after surgery. Patient suddenly started feeling acute chest and abdominal pain 3 hours after the operation, rapid response was called, CTA neg for PE and no abdominal pathology seen. After obtaining head CT, patient started complaining of neck pain, and unable to move all her extremities. No fevers, nausea, headache, vomiting, vision changes, shaking movements of her body, urinary/bowel incontinence. 12 point ROS obtained and negative, except as per HPI. PMH: Hx of DVT ~8 months ago, treated with anticoagulation therapy for 3 months PSH: abdominoplasty Allergies: morphine (rash) Soc Hx: Denies smoking, drinking, illicit drug use Review of Systems - Review of Systems All systems: reviewed and no additional remarkable complaints except Review of Systems: as per HPI Past Patient History - Infectious Disease Hx of Infectious Diseases: None - Tetanus Immunizations Tetanus Immunization: Unknown - Past Social History Smoking Status: Never Smoked - CARDIAC Hx Cardiac Disorders: No (dvt) - PULMONARY Hx Respiratory Disorders: No - NEUROLOGICAL Hx Neurological Disorder: No - HEENT Hx HEENT Problems: No - RENAL Hx Chronic Kidney Disease: No - ENDOCRINE/METABOLIC Hx Endocrine Disorders: No - HEMATOLOGICAL/ONCOLOGICAL Hx Blood Disorders: No - INTEGUMENTARY Hx Dermatological Problems: No - MUSCULOSKELETAL/RHEUMATOLOGICAL Hx Musculoskeletal Disorders: No - GASTROINTESTINAL Hx Gastrointestinal Disorders: No - GENITOURINARY/GYNECOLOGICAL Hx Genitourinary Disorders: No - PSYCHIATRIC Hx Depression: No Hx Emotional Abuse: No Hx Physical Abuse: No Hx Substance Use: No - SURGICAL HISTORY Hx Section: Yes (x3) Other/Comment: 'Lipectomy' - ANESTHESIA Hx Anesthesia: Yes Hx Anesthesia Reactions: No Meds Allergies/Adverse Reactions: Allergies Allergy/AdvReac Type Severity Reaction Status Date / Time morphine AdvReac ITCHING Verified 08/04/18 02:02 - Medications Medications: Current Medications Metronidazole (Flagyl) 500 mg in 100 mls @ 100 mls/hr IVPB Q6 BRANDI; Protocol Last Admin: 08/04/18 13:35 Dose: 100 mls/hr Ceftriaxone Sodium (Rocephin 1 Gram Ivpb) 1 gm in 100 mls @ 100 mls/hr IVPB DAILY BRANDI; Protocol Last Admin: 08/04/18 10:27 Dose: 100 mls/hr Lactated Ringer's (Lactated Ringer's) 1,000 mls @ 125 mls/hr IV .Q8H BRANDI Last Admin: 08/04/18 10:27 Dose: 125 mls/hr Ondansetron HCl (Zofran Inj) 4 mg IVP ONCE PRN PRN Reason: Nausea/Vomiting Oxycodone/Acetaminophen (Percocet 5/325 Mg Tab) 1 tab PO Q4H PRN PRN Reason: Pain, moderate (4-7) Stop: 08/07/18 08:45 Last Admin: 08/04/18 10:34 Dose: 1 tab Physical Exam - Constitutional Appears: Non-toxic, Younger Than Stated Age - Head Exam Head Exam: NORMOCEPHALIC - Eye Exam Eye Exam: EOMI, PERRL. absent: Conjunctival injection, Nystagmus, Scleral icterus Pupil Exam: NORMAL ACCOMODATION, PERRL. absent: Fixed, Irregular, Miosis, Mydriatic, Unequal - ENT Exam ENT Exam: Mucous Membranes Moist - Neck Exam Additional comments: + Neck pain, + tenderness at C4-C5 vertebral level. Limited ROM due to pain. - Respiratory Exam Respiratory Exam: Clear to Auscultation Bilateral, NORMAL BREATHING PATTERN. absent: Wheezes - Cardiovascular Exam Cardiovascular Exam: RRR, +S1, +S2. absent: Systolic Murmur - GI/Abdominal Exam GI & Abdominal Exam: Hypoactive Bowel Sounds, Soft. absent: Distended, Firm, Rebound - Neurological Exam Neurological exam: Alert, CN II-XII Intact, Oriented x3, Reflexes Normal Additional comments: Diminished sensation at C4 dermatomal level, + Sensation at C5 level. Unable to move all 4 extremities. + some movement of her left toes. B/l babinski downgoing. B/l biceps, patellar, achilles reflexes 2+/4. - Psychiatric Exam Psychiatric exam: Anxious - Skin Skin Exam: Normal Color, Warm Results - Vital Signs Recent Vital Signs: Last Vital Signs Temp 98.7 F 08/04/18 16:24 Pulse 90 08/04/18 16:24 Resp 19 08/04/18 16:24 BP 106/77 08/04/18 16:24 Pulse Ox 99 08/04/18 16:24 - Labs Result Diagrams: 08/04/18 06:30 08/04/18 06:30 Labs: Laboratory Results - last 24 hr 08/03/18 08/03/18 08/03/18 20:24 20:24 20:24 WBC 15.4 H RBC 4.30 Hgb 12.9 Hct 38.2 MCV 88.8 MCH 30.0 MCHC 33.8 RDW 14.8 H Plt Count 214 MPV 10.2 Gran % 87.5 H Lymph % (Auto) 9.1 L Woods % (Auto) 3.2 Eos % (Auto) 0.1 L Baso % (Auto) 0.1 Gran # 13.49 H Lymph # (Auto) 1.4 Woods # (Auto) 0.5 Eos # (Auto) 0.0 Baso # (Auto) 0.02 PT INR APTT pO2 VBG pH VBG pCO2 VBG HCO3 VBG Total CO2 VBG O2 Sat (Calc) VBG Base Excess VBG Potassium Glucose Lactate FiO2 Sodium 137 Potassium 3.7 Chloride 108 H Carbon Dioxide 18 L Anion Gap 15 BUN 12 Creatinine 0.7 Est GFR ( Amer) > 60 Est GFR (Non-Af Amer) > 60 POC Glucose (mg/dL) Random Glucose 104 Calcium 9.0 Total Bilirubin 0.6 AST 32 ALT 23 Alkaline Phosphatase 49 Troponin I Total Protein 8.2 Albumin 4.2 Globulin 3.9 Albumin/Globulin Ratio 1.1 Lipase Venous Blood Potassium Urine Color Yellow Urine Appearance Cloudy Urine pH 7.5 Ur Specific Beatty 1.015 Urine Protein Negative Urine Glucose (UA) Negative Urine Ketones 40 H Urine Blood Negative Urine Nitrate Positive H Urine Bilirubin Negative Urine Urobilinogen 0.2 Ur Leukocyte Esterase Negative Urine RBC 1 - 3 Urine WBC 0 - 2 Ur Epithelial Cells 0 - 2 Urine Bacteria Large 08/03/18 08/04/18 08/04/18 20:24 00:52 06:30 WBC RBC Hgb Hct MCV MCH MCHC RDW Plt Count MPV Gran % Lymph % (Auto) Woods % (Auto) Eos % (Auto) Baso % (Auto) Gran # Lymph # (Auto) Woods # (Auto) Eos # (Auto) Baso # (Auto) PT INR APTT pO2 55 VBG pH 7.36 VBG pCO2 38.0 L VBG HCO3 21.5 VBG Total CO2 22.7 VBG O2 Sat (Calc) 91.4 H VBG Base Excess -3.6 L VBG Potassium 4.1 Glucose 119 H Lactate 1.1 FiO2 21.0 Sodium 134.0 137 Potassium 4.0 Chloride 107.0 106 Carbon Dioxide 23 Anion Gap 11 BUN 9 Creatinine 0.7 Est GFR ( Amer) > 60 Est GFR (Non-Af Amer) > 60 POC Glucose (mg/dL) Random Glucose 112 H Calcium 8.2 L Total Bilirubin AST ALT Alkaline Phosphatase Troponin I Total Protein Albumin Globulin Albumin/Globulin Ratio Lipase 63 Venous Blood Potassium 4.1 Urine Color Urine Appearance Urine pH Ur Specific Beatty Urine Protein Urine Glucose (UA) Urine Ketones Urine Blood Urine Nitrate Urine Bilirubin Urine Urobilinogen Ur Leukocyte Esterase Urine RBC Urine WBC Ur Epithelial Cells Urine Bacteria 08/04/18 08/04/18 08/04/18 06:30 06:30 13:33 WBC 18.4 H RBC 3.91 Hgb 11.7 L Hct 34.6 L MCV 88.5 MCH 29.9 MCHC 33.8 RDW 14.7 H Plt Count 204 MPV 10.3 Gran % 81.1 H Lymph % (Auto) 11.2 L Woods % (Auto) 7.6 H Eos % (Auto) 0.0 L Baso % (Auto) 0.1 Gran # 14.87 H Lymph # (Auto) 2.1 Woods # (Auto) 1.4 H Eos # (Auto) 0.0 Baso # (Auto) 0.02 PT 12.7 H INR 1.10 APTT 25.2 pO2 VBG pH VBG pCO2 VBG HCO3 VBG Total CO2 VBG O2 Sat (Calc) VBG Base Excess VBG Potassium Glucose Lactate FiO2 Sodium Potassium Chloride Carbon Dioxide Anion Gap BUN Creatinine Est GFR ( Amer) Est GFR (Non-Af Amer) POC Glucose (mg/dL) 95 Random Glucose Calcium Total Bilirubin AST ALT Alkaline Phosphatase Troponin I Total Protein Albumin Globulin Albumin/Globulin Ratio Lipase Venous Blood Potassium Urine Color Urine Appearance Urine pH Ur Specific Beatty Urine Protein Urine Glucose (UA) Urine Ketones Urine Blood Urine Nitrate Urine Bilirubin Urine Urobilinogen Ur Leukocyte Esterase Urine RBC Urine WBC Ur Epithelial Cells Urine Bacteria 08/04/18 14:20 WBC RBC Hgb Hct MCV MCH MCHC RDW Plt Count MPV Gran % Lymph % (Auto) Woods % (Auto) Eos % (Auto) Baso % (Auto) Gran # Lymph # (Auto) Woods # (Auto) Eos # (Auto) Baso # (Auto) PT INR APTT pO2 VBG pH VBG pCO2 VBG HCO3 VBG Total CO2 VBG O2 Sat (Calc) VBG Base Excess VBG Potassium Glucose Lactate FiO2 Sodium Potassium Chloride Carbon Dioxide Anion Gap BUN Creatinine Est GFR ( Amer) Est GFR (Non-Af Amer) POC Glucose (mg/dL) Random Glucose Calcium Total Bilirubin AST ALT Alkaline Phosphatase Troponin I < 0.01 Total Protein Albumin Globulin Albumin/Globulin Ratio Lipase Venous Blood Potassium Urine Color Urine Appearance Urine pH Ur Specific Beatty Urine Protein Urine Glucose (UA) Urine Ketones Urine Blood Urine Nitrate Urine Bilirubin Urine Urobilinogen Ur Leukocyte Esterase Urine RBC Urine WBC Ur Epithelial Cells Urine Bacteria Assessment & Plan - Assessment and Plan (Free Text) Assessment: 43 year old female, referred by Dr Joyner, with PMH DVT, abdominoplasty, s/p laparoscopic appendectomy for acute appendicitis this AM, started complaining of acute neck pain, flaccid paralysis: - 2/2 cervical fracture/cord compression vs abscess vs psychogenic - Cervical collar - instructed nurse to apply it immediately - CT head and neck negative for any fractures. - ordered MRI head and neck with contrast to rule out abscess. - If above imaging negative, consider psych consult. - neuro checks, falls precautions - Closely monitor Case seen and discussed with Dr Curtis.
--- NOTE | 2018-08-04 18:02 | CT ---
Date of service: 08/04/2018 PROCEDURE: CT HEAD WITHOUT CONTRAST. HISTORY: paralysis COMPARISON: None available. TECHNIQUE: Axial computed tomography images were obtained through the head/brain without intravenous contrast. Supplemental Coronal and Sagittal projections created and reviewed. Radiation dose: Total exam DLP = 940.96 mGy-cm. This CT exam was performed using one or more of the following dose reduction techniques: Automated exposure control, adjustment of the mA and/or kV according to patient size, and/or use of iterative reconstruction technique. FINDINGS: HEMORRHAGE: No intracranial hemorrhage. BRAIN: No mass effect or edema. No atrophy or chronic microvascular ischemic changes. Left temporal arachnoid cyst 12 x 20 mm. VENTRICLES: Unremarkable. No hydrocephalus. CALVARIUM: Unremarkable. PARANASAL SINUSES: Unremarkable as visualized. No significant inflammatory changes. MASTOID AIR CELLS: Unremarkable as visualized. No inflammatory changes. OTHER FINDINGS: None. IMPRESSION: No acute intracranial abnormalities. No significant findings to account for the clinical presentation.
--- NOTE | 2018-08-04 18:06 | CT ---
Date of service: 08/04/2018 PROCEDURE: CT Cervical Spine without contrast HISTORY: paralysis COMPARISON: None available. TECHNIQUE: Axial computed tomography images were obtained of the cervical spine without the use of intravenous contrast. Coronal and sagittal reformatted images were created and reviewed. Radiation dose: Total exam DLP = 522.16 mGy-cm. This CT exam was performed using one or more of the following dose reduction techniques: Automated exposure control, adjustment of the mA and/or kV according to patient size, and/or use of iterative reconstruction technique. FINDINGS: VERTEBRAE: No fracture. Normal alignment. No destructive bony lesion. DISCS/SPINAL CANAL/NEURAL FORAMINA: No significant central canal or neural foraminal stenosis. Discs heights are grossly preserved. PARASPINAL SOFT TISSUES: Unremarkable. OTHER FINDINGS: Incomplete visualization of infiltrate left upper lobe. IMPRESSION: Unremarkable CT of the cervical spine.
[2018-08-04] MEDS ORDERED: Gadodiamide 287 MG/ML VIAL (15ML) IV ONE (21:22)
--- NOTE | 2018-08-04 23:06 | HP ---
HISTORY OF PRESENT ILLNESS: Patient is 43 years old who came to the emergency room, complaining of abdominal pain. Patient states yesterday she had some cheesy food. It started on 11 o' clock in the morning. Pain was very sharp around the umbilical area. She felt nauseous. She vomited. No history of fever or chills. No diarrhea. No chest pain. No shortness of breath. Later on, the pain settled on the right lower quadrant area. So, she came to emergency room for further evaluation. PAST MEDICAL HISTORY: Significant for recent liposuction 6 or 7 months ago. ALLERGIES: SHE IS ALLERGIC TO MORPHINE. MEDICATIONS: She is not on any medication at home. SOCIAL HISTORY: She is , lives with her . Denies smoking, drinking, alcohol use. PHYSICAL EXAMINATION: GENERAL: She is awake, alert, oriented, communicative. Complaining of pain in the surgical site. VITAL SIGNS: She is afebrile, pulse 67, respirations 14, blood pressure 99/59. LUNGS: Bilateral fair airflow. No rhonchi or crackle. HEART: S1 and S2 audible. ABDOMEN: Soft, slight palpable discomfort at surgical site. NEUROLOGIC: She is awake, alert, oriented, communicative. LABORATORY DATA: WBC upon arrival was 15.4, follow up this morning is 18.4; hemoglobin 12.9; hematocrit 38; platelets 214. PT 12.7, INR 1.10. Chemistry: Sodium 137, potassium 4, chloride 106, CO2 23, BUN 9, creatinine 0.7, blood sugar 112. CT scan of the abdomen and pelvis shows acute appendicitis, the scan was done last night. ASSESSMENT: 1. Acute appendicitis, status post appendectomy. 2. Recent liposuction. 3. Leukocytosis. PLAN: Currently, patient is on metronidazole. We will continue her on IV fluid. Analgesics as needed. We will start on incentive spirometry. We will follow up patient in a.m. Osmani Frey MD
[2018-08-05] MEDS: Lactated Ringer's 1,000 ML IV SCH ×2 (02:15→13:02)
[2018-08-05] MEDS: metroNIDAZOLE IV 500 mg/100 ml 500 MG/100 ML BAG IVPB SCH ×2 (05:07→12:22)
[2018-08-05] MEDS: Oxycodone/Acetaminophen 5/325 mg Tab PO PRN (05:09)
--- NOTE | 2018-08-05 07:18 | CP.PCM.PN ---
Subjective - Date & Time of Evaluation Date of Evaluation: 08/05/18 Time of Evaluation: 07:17 - Subjective Subjective: Roxie Figueroa, PGY2, Neurology Progress Note for Dr Curtis: Patient seen and examined at bedside. No acute events overnight. Patient states that she feels back to her baseline today, no weakness, sensation loss. States that she is able to move all extremities with no difficulty. Patient would also like to walk. No fevers, headache, nausea, vomiting, stiff neck/tenderness, paresthesias. Objective - Vital Signs/Intake and Output Vital Signs (last 24 hours): Temp Pulse Resp BP Pulse Ox 98 F 71 18 103/66 98 08/05/18 01:51 08/05/18 05:49 08/05/18 01:51 08/05/18 01:51 08/05/18 01:51 Intake and Output: 08/05/18 08/05/18 06:59 18:59 Intake Total 1240 Balance 1240 - Medications Medications: Current Medications Metronidazole (Flagyl) 500 mg in 100 mls @ 100 mls/hr IVPB Q6 BRANDI; Protocol Last Admin: 08/05/18 05:07 Dose: 100 mls/hr Ceftriaxone Sodium (Rocephin 1 Gram Ivpb) 1 gm in 100 mls @ 100 mls/hr IVPB DAILY BRANDI; Protocol Last Admin: 08/04/18 10:27 Dose: 100 mls/hr Lactated Ringer's (Lactated Ringer's) 1,000 mls @ 125 mls/hr IV .Q8H BRANDI Last Admin: 08/05/18 02:15 Dose: 125 mls/hr Ondansetron HCl (Zofran Inj) 4 mg IVP ONCE PRN PRN Reason: Nausea/Vomiting Oxycodone/Acetaminophen (Percocet 5/325 Mg Tab) 1 tab PO Q4H PRN PRN Reason: Pain, moderate (4-7) Stop: 08/07/18 08:45 Last Admin: 08/05/18 05:09 Dose: 1 tab - Labs Labs: 08/04/18 06:30 08/04/18 06:30 PT 12.7 SECONDS (9.4-12.5) H 08/04/18 06:30 INR 1.10 08/04/18 06:30 APTT 25.2 Seconds (25.1-36.5) 08/04/18 06:30 - Constitutional Appears: Non-toxic, No Acute Distress - Head Exam Head Exam: ATRAUMATIC, NORMOCEPHALIC - Eye Exam Eye Exam: EOMI, Normal appearance, PERRL. absent: Scleral icterus Pupil Exam: NORMAL ACCOMODATION, PERRL. absent: Irregular, Miosis, Mydriatic - ENT Exam ENT Exam: Normal Exam - Neck Exam Neck Exam: Full ROM, Normal Inspection. absent: Lymphadenopathy, Meningismus, Tenderness - Respiratory Exam Respiratory Exam: Clear to Ausculation Bilateral, NORMAL BREATHING PATTERN. absent: Stridor - Cardiovascular Exam Cardiovascular Exam: RRR, +S1, +S2. absent: Murmur - GI/Abdominal Exam GI & Abdominal Exam: Soft, Normal Bowel Sounds. absent: Organomegaly Additional comments: + appendectomy incisions noted - Extremities Exam Extremities Exam: Full ROM, Normal Capillary Refill. absent: Calf Tenderness - Neurological Exam Neurological Exam: Alert, Awake, CN II-XII Intact, Oriented x3, Reflexes Normal Neuro motor strength exam: Left Upper Extremity: 5, Right Upper Extremity: 5, Left Lower Extremity: 5, Right Lower Extremity: 5 - Psychiatric Exam Psychiatric exam: Normal Affect - Skin Skin Exam: Dry, Intact, Normal Color Assessment and Plan - Assessment and Plan (Free Text) Assessment: 43 year old female with PMH DVT, abdominoplasty, s/p laparoscopic appendectomy for acute appendicitis this AM, developed acute neck pain, flaccid paralysis yesterday afternoon. CT head and neck negative for acute fractures. MRI head and neck negative for any underlying abscess or tumor. Today, the symptoms have resolved. Likely psychogenic in nature. Thank you for your consult. Case seen and discussed with Dr Curtis.
[2018-08-05 08:05] VITALS: BP 115/73; RESP 20; TEMP 98.1; O2SAT 99
[2018-08-05 09:37] LABS: BASO # 0.03 K/mm3 (0.0-2.0); BASO % 0.4 % (0.0-3.0); EOS # 0.1 (0.0-0.7); EOS % 1.7 % (1.5-5.0); GRAN # 4.63 (1.4-6.5); GRAN % 59.3 % (50.0-68.0); HEMOGLOBIN 11.3 g/dL (12.0-16.0); LYMPH # 2.5 (1.2-3.4); LYMPH % 32.1 % (22.0-35.0); MEAN CELL VOLUME 90.1 fl (80.0-105.0); MEAN CORPUSCULAR HEMOGLOBIN 29.6 pg (25.0-35.0); MEAN CORPUSCULAR HGB CONC 32.8 g/dl (31.0-37.0); MEAN PLATELET VOLUME 9.9 fl (7.0-11.0); MONO # 0.5 (0.1-0.6); MONO % 6.5 % (1.0-6.0); RBC 3.82 10^6/uL (3.5-6.1); RED CELL DISTRIBUTION WIDTH 15.2 % (11.5-14.5); WHITE BLOOD COUNT 7.8 10^3/ul (4.5-11.0)
--- NOTE | 2018-08-05 09:39 | CP.PCM.PN ---
Subjective - Date & Time of Evaluation Date of Evaluation: 08/05/18 Time of Evaluation: 09:36 - Subjective Subjective: General surgery progress note for Dr. Hoffman Patient seen and examined at bedside. No acute events overnight. Patient states that she is able to move all her extremities today and her pain is better. She denies fevers, chills, shortness of breath, or any other complaints at this time. Objective - Vital Signs/Intake and Output Vital Signs (last 24 hours): Temp Pulse Resp BP Pulse Ox 98.1 F 71 20 115/73 99 08/05/18 08:04 08/05/18 08:04 08/05/18 08:04 08/05/18 08:04 08/05/18 08:04 Intake and Output: 08/05/18 08/05/18 06:59 18:59 Intake Total 1240 Balance 1240 - Medications Medications: Current Medications Metronidazole (Flagyl) 500 mg in 100 mls @ 100 mls/hr IVPB Q6 BRANDI; Protocol Last Admin: 08/05/18 05:07 Dose: 100 mls/hr Ceftriaxone Sodium (Rocephin 1 Gram Ivpb) 1 gm in 100 mls @ 100 mls/hr IVPB DAILY BRANDI; Protocol Last Admin: 08/04/18 10:27 Dose: 100 mls/hr Lactated Ringer's (Lactated Ringer's) 1,000 mls @ 125 mls/hr IV .Q8H BRANDI Last Admin: 08/05/18 02:15 Dose: 125 mls/hr Ondansetron HCl (Zofran Inj) 4 mg IVP ONCE PRN PRN Reason: Nausea/Vomiting Oxycodone/Acetaminophen (Percocet 5/325 Mg Tab) 1 tab PO Q4H PRN PRN Reason: Pain, moderate (4-7) Stop: 08/07/18 08:45 Last Admin: 08/05/18 05:09 Dose: 1 tab - Labs Labs: 08/04/18 06:30 08/04/18 06:30 PT 12.7 SECONDS (9.4-12.5) H 08/04/18 06:30 INR 1.10 08/04/18 06:30 APTT 25.2 Seconds (25.1-36.5) 08/04/18 06:30 - Constitutional Appears: Well, Non-toxic, No Acute Distress - Head Exam Head Exam: ATRAUMATIC, NORMOCEPHALIC - Eye Exam Eye Exam: Normal appearance - ENT Exam ENT Exam: Mucous Membranes Moist - Neck Exam Additional comments: Cervical collar in place. - Respiratory Exam Respiratory Exam: NORMAL BREATHING PATTERN. absent: Respiratory Distress - Cardiovascular Exam Cardiovascular Exam: RRR. absent: Bradycardia, Tachycardia - GI/Abdominal Exam GI & Abdominal Exam: Soft, Tenderness (Tender to palpation at incision site, site C/D/I). absent: Distended, Guarding, Rigid - Back Exam Back Exam: NORMAL INSPECTION - Neurological Exam Neurological Exam: Alert, Awake, Oriented x3 - Psychiatric Exam Psychiatric exam: Normal Affect, Normal Mood - Skin Skin Exam: Dry, Intact, Normal Color, Warm Assessment and Plan - Assessment and Plan (Free Text) Assessment: Patient is a 43 year old female with appendicitis s/p laparoscopic appendectomy POD # 1. Plan: - Regular diet - Encourage OOB and ambulation - Incentive spirometer - Pain management - Continue IV antibiotics - Other recommendations as per neurology Discussed case with Dr. Yasmin Gallegos PGY-1
[2018-08-05 09:47] LABS: BLOOD UREA NITROGEN 8 mg/dL (7-21); GFR NON-AFRICAN AMERICAN > 60
--- NOTE | 2018-08-05 09:55 | CARD ---
APPROVED REPORT Date of service: 08/05/2018 EKG Measurement Heart [id number] IN 176P2 [id number] <Conclusion> Sinus bradycardia with sinus arrhythmia Clockwise Rotation. Non Specific ST_T Changes.
[2018-08-05] MEDS: cefTRIAXone 1 gm 1 GM/100 ML BAG IVPB SCH (10:12)
--- NOTE | 2018-08-05 10:19 | MRI ---
Date of service: 08/04/2018 PROCEDURE: MRI BRAIN WITH AND WITHOUT CONTRAST HISTORY: neck pain, flaccid paralysis COMPARISON: None available. TECHNIQUE: Multiplanar, multisequence MR images of the brain were obtained with and without intravenous contrast enhancement. 15 cc of Omniscan FINDINGS: HEMORRHAGE: None DWI: No evidence of an acute or early subacute infarction. BRAIN PARENCHYMA: There is a small arachnoid cyst in the left middle cranial fossa. No atrophy or chronic microvascular ischemic changes. ENHANCEMENT: No abnormal intracranial enhancement. VENTRICLES: Unremarkable. No hydrocephalus. CRANIUM: Unremarkable. ORBITS: Grossly unremarkable. PARANASAL SINUSES/MASTOIDS: Clear VASCULAR SYSTEM: Skull base flow voids intact. OTHER FINDINGS: The report concurs with the preliminary [facility] report. IMPRESSION: No acute intracranial findings
--- NOTE | 2018-08-05 10:22 | MRI ---
Date of service: 08/04/2018 PROCEDURE: MR CERVICAL SPINE WITHOUT CONTRAST HISTORY: neck pain, flaccid paralysis COMPARISON: None available. TECHNIQUE: Multiecho multiplanar sequences were performed through the cervical spine without the use of intravenous contrast. FINDINGS: Normal lordotic curvature. Craniocervical junction unremarkable. Vertebral body heights preserved. No marrow signal abnormality. Normal cervical cord. No paraspinal abnormality. C2-C3: No disc herniation, spinal canal stenosis or neural foraminal narrowing. C3-C4: No disc herniation, spinal canal stenosis or neural foraminal narrowing. C4-C5: No disc herniation, spinal canal stenosis or neural foraminal narrowing. C5-C6: No disc herniation, spinal canal stenosis or neural foraminal narrowing. C6-C7: No disc herniation, spinal canal stenosis or neural foraminal narrowing. C7-T1: No disc herniation, spinal canal stenosis or neural foraminal narrowing. OTHER FINDINGS: The report concurs with the preliminary [facility] report IMPRESSION: Unremarkable non contrast enhanced MRI of the cervical spine.
[2018-08-05] MEDS ORDERED: Potassium & Sodium Phosphate PO STA (12:24)
[2018-08-05 14:03] VITALS: PULSE 80
--- NOTE | 2018-08-05 17:04 | CARD ---
APPROVED REPORT Date of service: 08/05/2018 EXAM: Two-dimensional and M-mode echocardiogram with Doppler and color Doppler. INDICATION R/O PFO BUBBLE STUDY 2D DIMENSIONS Left Atrium (2D)3.1 (1.6-4.0cm)IVSd0.9 (0.7-1.1cm) LVDd4.5 (3.9-5.9cm)PWd1.0 (0.7-1.1cm) LVDs3.3 (2.5-4.0cm)FS (%) 26.1 % LVEF (%)50.0 (>50%) M-Mode DIMENSIONS Aortic Root2.90 (2.2-3.7cm)Aortic Cusp Exc.1.90 (1.5-2.0cm) Aortic Valve AoV Peak Eqjyuuwn317.0cm/Esteban Peak GR.5mmHg Mitral Valve E/A ratio0.0 TDI E/Lateral E'0.0E/Medial E'0.0 Tricuspid Valve TR Peak [id number]/sRAP [id number] Peak Gr.18mmHg [id number] LEFT VENTRICLE The left ventricle is normal size. The left ventricular function is normal. The left ventricular ejection fraction is within the normal range.Ej.Fr: 55%. RIGHT VENTRICLE The right ventricle is normal size. The right ventricular systolic function is normal. ATRIA The left atrium size is normal. The right atrium size is normal. AORTIC VALVE The aortic valve is normal in structure. MITRAL VALVE The mitral valve is normal in structure. Trace to Mild Mitral Regurge. TRICUSPID VALVE The tricuspid valve is normal in structure. There is mild tricuspid regurgitation. <Conclusion> The left ventricle is normal size. The left ventricular function is normal. The left ventricular ejection fraction is within the normal range.Ej.Fr: 55%. The right ventricle is normal size. The right ventricular systolic function is normal. The left atrium size is normal. The right atrium size is normal. The aortic valve is normal in structure. The mitral valve is normal in structure. Trace to Mild Mitral Regurge. The tricuspid valve is normal in structure. There is mild tricuspid regurgitation. No Bubble Crossing Seen on Bubble Study.
--- NOTE | 2018-08-09 09:39 | DS ---
HISTORY OF PRESENT ILLNESS: The patient is a 43-year-old, seen and examined. She came initially with abdominal pain that settled in right lower quadrant, underwent appendectomy yesterday. Post procedure, she started to have neck pain, generalized weakness and she was unable to move her upper and lower extremities. Rapid response was called. The patient was seen by neurologist, had MRI of the cervical spine and brain done and that was unremarkable. Later on the patient recovered. On examination today, she was able to move her extremities. Denies any abdominal pain. Eating and tolerating. PHYSICAL EXAMINATION: VITAL SIGNS: She is afebrile, pulse 71, respirations 20, blood pressure 115/73. LUNGS: Bilateral fair airflow. No rhonchi or crackle. HEART: S1, S2 audible. ABDOMEN: Soft. Slightly palpable discomfort. NEUROLOGIC: She is awake, alert, oriented, communicative. LABORATORY DATA: WBC 7.8, hemoglobin 11.3, hematocrit 34, platelet of 176. Chemistry: Sodium 138, potassium 4.1, chloride 108, CO2 of 25, BUN 8, creatinine 0.7, blood culture of 119, calcium 8, phosphorus is 2.3. ASSESSMENT: 1. Status post appendectomy. 2. Electrolyte imbalance. 3. Leukocytosis, that has resolved. 4. Probably, anxiety disorder. PLAN: The patient is clinically stable, eating and tolerating, able to ambulate. We will discharge the patient home and she will follow up with her PMD. Osmani Frey MD
--- NOTE | 2018-08-11 02:50 | OP ---
PROCEDURE DATE: 08/04/2018 PREOPERATIVE DIAGNOSIS: Acute Appendicitis. POSTOPERATIVE DIAGNOSIS: Acute Appendicitis. PROCEDURE PERFORMED: Laparoscopic appendectomy. SURGEON: Rosendo Hoffman MD. APPOINTMENT CLERK: Dr. Macdonald. ANESTHESIOLOGIST: Dr. Vargsa. TYPE OF ANESTHESIA: General endotracheal anesthesia. ESTIMATED BLOOD LOSS: Minimal. SPECIMEN: Inflamed appendix. INDICATIONS: The patient is a 43-year-old female who was admitted to the hospital with complaints of increasing pain in the periumbilical area which eventually rotated to the right lower quadrant. The patient had a CT scan revealing presence of acute appendicitis and was scheduled for appendectomy. DESCRIPTION OF PROCEDURE: The patient was brought to the Operating Room and placed on the operating table in the supine position. The patient was connected to the EKG, blood pressure and pulse oximetry monitors. The patient then underwent general endotracheal anesthesia and was prepped and draped in the usual sterile fashion. First, a standard time-out procedure took place when everybody in the room agreed as to the patient's identity, diagnoses and procedure to be performed. Using 2 towel clips, the anterior abdominal wall was elevated and Veress needle was inserted through a smaller incision, superior to the umbilicus. Once pneumoperitoneum was obtained, the 12-mm trocar was inserted through that incision and careful evaluation of the abdominal cavity revealed the presence of acutely inflamed appendix with some adhesions on the appendix through the anterior abdominal wall. Next, a second 10 mm trocar was inserted through the suprapubic incision and careful evaluation of the appendiceal mesentery was done. The mesentery was then incised using electrocautery and Harmonic scalpel and carefully, the mesentery of the appendix was taken down and transected. Once the base of the appendix was exposed clearly, the Endo-JINA stapler with regular load was inserted into the abdominal cavity and fired at the base of the appendix in order to amputate. The appendix was then returned to the Endo Catch bag and removed through the periumbilical incision. Now, the right lower quadrant was copiously irrigated and all of the irrigant fluid was suctioned out. There was excellent hemostasis noted at the staple line at the base of the appendix. All the irrigant fluid was suctioned out cleanly. The pneumoperitoneum was now released and trocars were removed and the wound was closed using 0 Vicryl for the fascia, 3-0 Vicryl for the subcutaneous tissue and 4-0 Monocryl for skin. Sterile Dermabond dressing was applied to the wound. The patient tolerated the procedure well and dressing was applied to all the wounds. The patient was then awakened, extubated and transferred to the Recovery Room for further observation. Rosendo Hoffman MD
== END 2018-08-05 16:00 | disposition home or self-care (01) ==
LOC: ED 19:32 → ERH 08-04 00:07 → 3RNO 08-04 01:49 → OBSVTOIN 08-05 08:48 → INTOOBSV 08-05 08:48
PROVIDERS: ADMIT Internal Medicine; ATTEND Internal Medicine
DX: K35.80 Unspecified acute appendicitis (principal); L29.9 Pruritus, unspecified; L27.0 Generalized skin eruption due to drugs and medicaments taken internally; T40.2X5A Adverse effect of other opioids, initial encounter; G83.9 Paralytic syndrome, unspecified; M54.2 Cervicalgia; R53.1 Weakness; Z86.718 Personal history of other venous thrombosis and embolism; Z88.5 Allergy status to narcotic agent
CPT/HCPCS: 36415; 44970; 70450; 70553; 71045; 71275; 72125; 72156; 74177; 76700; 80048; 80053; 81001; 82803; 82948; 83690; 83735; 84100; 84484; 85025; 85610; 85730; 87040; 87086; 87181; 88304; 93005; 93306; 96361; 96365; 96375; 96376; 99285; A9579; C9113; G0378; J0696; J1170; J1200; J1885; J2001; J2250; J2270; J2405; J2543; J2704; J2710; J3010; J7030; J7120; Q9967

== ENCOUNTER 2018-11-20 01:05 | Observation (INO) | payer BC ==
[2018-11-20 01:22] VITALS: BMI 31.6
--- NOTE | 2018-11-20 01:54 | ED PDOC ---
Arrival/HPI - General Historian: Patient - History of Present Illness Narrative History of Present Illness (Text): 11/20/18 01:50 Patient is a 43-year-old F with PMH of thombophlebitis (Per Patient she was diagnosed in [facility] about 10 months ago), who came into [facility] for chest pain, left wrist and left lower extremity pain that began this evening. Patient localizes the chest pain to her sternum, states that it is non-radiating, and intermittent. Patient reports the pain is worse with inspiration. Patient also admits to nausea, jaw pain, and headache. Patient otherwise denies shortness of breath, numbness/tingling, fever, chills, dysuria, abdominal pain, vomiting, and/or diaphoresis. Time/Duration: 4-6 hours Symptom Onset: Sudden Symptom Course: Unchanged Quality: Stabbing Severity Level: 5 <Ruth Holland - Last Filed: 11/20/18 05:16> <Joshua Parra - Last Filed: 11/20/18 19:36> - General Chief Complaint: Dental Pain Time Seen by Provider: 11/20/18 01:30 Past Medical History - Provider Review Nursing Documentation Reviewed: Yes - Past History Past History: Non-Contributing - Infectious Disease Hx of Infectious Diseases: None - Tetanus Immunization Tetanus Immunization: Unknown - Cardiac Hx Cardiac Disorders: Yes - Pulmonary Hx Respiratory Disorders: No - Neurological Hx Neurological Disorder: No - HEENT Hx HEENT Disorder: No - Renal Hx Renal Disorder: No - Endocrine/Metabolic Hx Endocrine Disorders: No - Hematological/Oncological Hx Blood Disorders: No - Integumentary Hx Dermatological Disorder: No - Musculoskeletal/Rheumatological Hx Musculoskeletal Disorders: No - Gastrointestinal Hx Gastrointestinal Disorders: No - Genitourinary/Gynecological Hx Genitourinary Disorders: No - Psychiatric Hx Depression: No Hx Emotional Abuse: No Hx Physical Abuse: No Hx Substance Use: No - Surgical History Hx Section: Yes (x3) Other/Comment: 'Lipectomy' - Anesthesia Hx Anesthesia: Yes Hx Anesthesia Reactions: No - Suicidal Assessment Feels Threatened In Home Enviroment: No <Ruth Holland - Last Filed: 11/20/18 05:16> Family/Social History - Physician Review Nursing Documentation Reviewed: Yes Family/Social History: Unknown Family HX Smoking Status: Never Smoked Hx Alcohol Use: No Hx Substance Use: No Hx Substance Use Treatment: No <Ruth Holland - Last Filed: 11/20/18 05:16> Allergies/Home Meds <Ruth Holland - Last Filed: 11/20/18 05:16> <Joshua Parra - Last Filed: 11/20/18 19:36> Allergies/Adverse Reactions: Allergies morphine Adverse Reaction (Verified 08/04/18 02:02) ITCHING Review of Systems - Review of Systems Constitutional: Normal Eyes: Normal ENT: Normal Respiratory: Normal. absent: SOB, Cough Cardiovascular: Chest Pain. absent: Palpitations, Calf Pain Gastrointestinal: Nausea. absent: Abdominal Pain, Diarrhea, Vomiting Genitourinary Female: Normal. absent: Dysuria Musculoskeletal: Arthralgias (left wrist pain ) Skin: Normal Neurological: Headache. absent: Dizziness Endocrine: Normal. absent: Diaphoresis Hemo/Lymphatic: Normal Psychiatric: Normal <Ruth Holland - Last Filed: 11/20/18 05:16> - Physician Review All systems were reviewed & negative as marked: Yes <Joshua Parra - Last Filed: 11/20/18 19:36> Physical Exam Vital Signs Pulse Resp BP Pulse Ox 11/20/18 01:30 84 16 128/81 99 Blood Pressure: Normal Pulse: Regular Respiratory Rate: Normal Appearance: Positive for: Well-Appearing, Non-Toxic, Comfortable Pain Distress: Mild Mental Status: Positive for: Alert and Oriented X 3 - Systems Exam Head: Present: Atraumatic, Normocephalic Pupils: Present: PERRL Conjunctiva: Present: Normal. No: Injected, Icteric Mouth: Present: Moist Mucous Membranes Neck: Present: Normal Range of Motion. No: JVD, Bruit Respiratory/Chest: Present: Clear to Auscultation, Good Air Exchange. No: Respiratory Distress, Accessory Muscle Use, Wheezes Cardiovascular: Present: Regular Rate and Rhythm, Normal S1, S2. No: Murmurs Abdomen: Present: Normal Bowel Sounds. No: Tenderness, Distention Upper Extremity: Present: Normal Inspection, Normal ROM, NORMAL PULSES. No: Cyanosis, Edema Lower Extremity: Present: Normal Inspection, NORMAL PULSES. No: Edema, CALF TENDERNESS Neurological: Present: GCS=15, CN II-XII Intact, Speech Normal Skin: Present: Warm, Dry, Normal Color. No: Rashes Psychiatric: Present: Alert, Oriented x 3, Normal Insight, Normal Concentration <Ruth Holland - Last Filed: 11/20/18 05:16> Vital Signs Pulse Resp BP Pulse Ox 11/20/18 01:30 84 16 128/81 99 <Joshua Parra - Last Filed: 11/20/18 19:36> Medical Decision Making ED Course and Treatment: 11/20/18 02:01 IMPRESSION Patient is a 43-year-old F with PMH of thombophlebitis (Per Patient she was diagnosed in [facility] about 10 months ago), who came into [facility] for chest pain, left wrist and left lower extremity pain that began this evening. ASSESSMENT Chest pain - ACS rule-out Headache PLAN EKG CXR Troponin D-Dimer CMP CBC Toradol 11/20/18 05:13 Imaging and labs are within normal limits; Reports reviewed. Patient continues to complain of pain and nausea. Discussed findings with Dr. Arambula who accepts the Patient to be admitted for observation under Dr. Arambula's service. - RAD Interpretation Radiology Orders: 11/20/18 01:40 HEAD W/O CONTRAST [CT] Stat CXR [CHEST PORTABLE] [RAD] Stat <Ruth Holland - Last Filed: 11/20/18 05:16> ED Course and Treatment: Patient Seen with Resident: In agreement with resident note which contains more details about the patient. Patient seen and evaluated with resident. Came up with plan and treatment together. 43 year old female presents complaining of chest pain. Patient is also complaining of nausea, jaw pain, and headache. Plan: -- CT head w/o contrast -- EKG -- Labs -- Chest X-ray -- Toradol -- Urinalysis -- Reassess and disposition CT SCAN OF THE BRAIN WITHOUT IV CONTRAST Electronically signed on Nov 20, 2018 3:19:48 AM EST by: Terrance Malik M.D., IMPRESSION: Normal unenhanced CT scan of the brain. 11/20/18 05:[address] Arambula who is aware and agrees with the plan. Accepts patient into his service. vice president of instruction notified. - Lab Interpretations Lab Results: Troponin I < 0.01 ng/mL 11/20/18 02:50 Total Bilirubin 0.3 mg/dL (0.2-1.3) 11/20/18 02:50 AST 31 U/L (14-36) 11/20/18 02:50 ALT 27 U/L (7-56) 11/20/18 02:50 Alkaline Phosphatase 49 U/L (38-126) 11/20/18 02:50 Total Protein 8.2 g/dL (5.8-8.3) 11/20/18 02:50 Albumin 4.4 g/dL (3.0-4.8) 11/20/18 02:50 Globulin 3.8 gm/dL 11/20/18 02:50 Albumin/Globulin Ratio 1.1 (1.1-1.8) 11/20/18 02:50 I have reviewed the lab results: Yes - RAD Interpretation Radiology Orders: 11/20/18 01:40 HEAD W/O CONTRAST [CT] Stat CXR [CHEST PORTABLE] [RAD] Stat Financial Aid Director: ED Physician, Radiologist - EKG Interpretation Interpreted by ED Physician: Yes Type: 12 lead EKG - Medication Orders Current Medication Orders: Discontinued Medications Ketorolac Tromethamine (Toradol) 30 mg IVP STAT STA Stop: 11/20/18 02:04 Last Admin: 11/20/18 02:55 Dose: 30 mg MAR Pain Assessment Document 11/20/18 02:55 (Rec: 11/20/18 02:58 [facility] Pain Reassessment Is this a pain reassessment? No Sleep Is patient sleeping during reassessment? No Presence of Pain Presence of Pain Yes Pain Scale Used Protocol: PSCALES Pain Scale Used Numeric Location Pain Location Body Site Chest IVP Administration Document 11/20/18 02:55 (Rec: 11/20/18 02:58 [facility] Charges for Administration # of IVP Administrations 1 <Joshua Parra - Last Filed: 11/20/18 19:36> - PA / PHYSICIST CRYOGENICS / Resident Statement / has reviewed & agrees with the documentation as recorded. / has examined the patient and agrees with the treatment plan. - Scribe Statement The provider has reviewed the documentation as recorded by the Lisa De Provider Scribe Attestation: All medical record entries made by the Scribe were at my direction and personally dictated by me. I have reviewed the chart and agree that the record accurately reflects my personal performance of the history, physical exam, medical decision making, and the department course for this patient. I have also personally directed, reviewed, and agree with the discharge instructions and disposition. <Joshua Parra - Last Filed: 11/20/18 19:36> Disposition/Present on Arrival - Present on Arrival Any Indicators Present on Arrival: Yes History of DVT/PE: Yes History of Uncontrolled Diabetes: No Urinary Catheter: No History of Decub. Ulcer: No History Surgical Site Infection Following: None - Disposition Have Diagnosis and Disposition been Completed?: Yes Disposition Time: 05:18 Patient Plan: Admission <Ruth Holland - Last Filed: 11/20/18 05:16> <Joshua Parra - Last Filed: 11/20/18 19:36> - Disposition Diagnosis: Chest pain, Headache Disposition: HOSPITALIZED Condition: GUARDED
[2018-11-20 03:29] LABS: BASO # 0.02 K/mm3 (0.0-2.0); BASO % 0.2 % (0.0-3.0); EOS # 0.3 (0.0-0.7); EOS % 3.2 % (1.5-5.0); HEMOGLOBIN 12.7 g/dL (12.0-16.0); LYMPH # 3.2 (1.2-3.4); LYMPH % 35.1 % (22.0-35.0); MEAN CELL VOLUME 91.8 fl (80.0-105.0); MEAN CORPUSCULAR HEMOGLOBIN 31.6 pg (25.0-35.0); MEAN CORPUSCULAR HGB CONC 34.4 g/dl (31.0-37.0); MEAN PLATELET VOLUME 9.9 fl (7.0-11.0); MONO # 0.8 (0.1-0.6); MONO % 8.6 % (1.0-6.0); RBC 4.02 10^6/uL (3.5-6.1); RED CELL DISTRIBUTION WIDTH 14.7 % (11.5-14.5); WHITE BLOOD COUNT 9.1 10^3/uL (4.5-11.0)
[2018-11-20 03:36] LABS: ALB/GLOB RATIO 1.1 (1.1-1.8); ALBUMIN 4.4 g/dL (3.0-4.8); BLOOD UREA NITROGEN 13 mg/dL (7-21); GFR NON-AFRICAN AMERICAN > 60
[2018-11-20 03:48] LABS: TROPONIN I < 0.01 ng/mL
[2018-11-20 03:52] LABS: ALT/SGPT 27 U/L (7-56); AST/SGOT 31 U/L (14-36); BARBITURATES, UR NEGATIVE (NEGATIVE); BENZODIAZEPINES, UR NEGATIVE (NEGATIVE); OPIATES, UR NEGATIVE (NEGATIVE); PHENCYCLIDINE, UR NEGATIVE (NEGATIVE)
[2018-11-20 04:02] LABS: URINE BILIRUBIN NEGATIVE (NEGATIVE); URINE BLOOD TRACE-LYSED (NEGATIVE); URINE GLUCOSE (UA) NEGATIVE (NEGATIVE); URINE LEUKOCYTE ESTERASE TRACE Leu/uL (NEGATIVE); URINE PROTEIN NEGATIVE mg/dL (<30 mg/dL); URINE UROBILINOGEN 0.2 E.U./dL (<1 E.U./dL)
[2018-11-20 05:03] LABS: URINE APPEARANCE SL CLOUDY (CLEAR); URINE COLOR YELLOW (YELLOW)
[2018-11-20 05:04] LABS: URINE BACTERIA MANY /hpf; URINE RBC 0 - 2 /hpf (0-2)
--- NOTE | 2018-11-20 06:31 | CP.PCM.HP ---
History of Present Illness - History of Present Illness History of Present Illness: Joaquín Siddiqui, PGY1 H&P for Dr. Arambula cc: chest pain Patient is a 43-year-old F with PMHx of thombophlebitis (Patient was diagnosed in [facility] 10 months ago) who presented to [facility] ED for chest pain for one day in duration. Patient describes chest pain as pressure-like, located on sternum, it does not radiate to the arm. Chest pain is on and off. Vital signs are stable: HR 84, BP 128/81, RR 16, SaO2 99%. Medical team was consulted for evaluation. Patient endorses headache and x2 episodes of vomiting before arriving to the ED. She lives at home with family but mentions that her son had a cold for the past week. Patient has not received the flu shot. There is no associated sob, lightheadedness, dizziness, urinary frequency/urgency/dysuria. Chest pain is pressure-like and does not radiate to the arm. Patient has no recent travel history. She mentions that her chest pain was worse with cough. A full 12 point ROS was conducted and unremarkable except as stated above. PMD: none PMHX: thrombophlebitis (diagnosed in [place] 10 months ago) PSHx: appendectomy Meds: denies Allergies: morphine SocialHx: denies smoking, drinking, and recreational drug use. Patient lives at home with family. FamHx: mother has DM. No cardiac history in family. Present on Admission - Present on Admission Any Indicators Present on Admission: Yes History of DVT/PE: Yes Review of Systems - Review of Systems All systems: reviewed and no additional remarkable complaints except (as per HPI.) Past Patient History - Infectious Disease Hx of Infectious Diseases: None - Tetanus Immunizations Tetanus Immunization: Unknown - Past Social History Smoking Status: Never Smoked - CARDIAC Hx Cardiac Disorders: Yes - PULMONARY Hx Respiratory Disorders: No - NEUROLOGICAL Hx Neurological Disorder: No - HEENT Hx HEENT Problems: No - RENAL Hx Chronic Kidney Disease: No - ENDOCRINE/METABOLIC Hx Endocrine Disorders: No - HEMATOLOGICAL/ONCOLOGICAL Hx Blood Disorders: No - INTEGUMENTARY Hx Dermatological Problems: No - MUSCULOSKELETAL/RHEUMATOLOGICAL Hx Musculoskeletal Disorders: No - GASTROINTESTINAL Hx Gastrointestinal Disorders: No - GENITOURINARY/GYNECOLOGICAL Hx Genitourinary Disorders: No - PSYCHIATRIC Hx Depression: No Hx Emotional Abuse: No Hx Physical Abuse: No Hx Substance Use: No - SURGICAL HISTORY Hx Section: Yes (x3) Other/Comment: 'Lipectomy' - ANESTHESIA Hx Anesthesia: Yes Hx Anesthesia Reactions: No Meds Allergies/Adverse Reactions: Allergies Allergy/AdvReac Type Severity Reaction Status Date / Time morphine AdvReac ITCHING Verified 08/04/18 02:02 Physical Exam - Constitutional Appears: No Acute Distress - Head Exam Head Exam: ATRAUMATIC, NORMAL INSPECTION, NORMOCEPHALIC - Eye Exam Eye Exam: EOMI, Normal appearance Pupil Exam: NORMAL ACCOMODATION - ENT Exam ENT Exam: Mucous Membranes Moist, Normal Exam - Neck Exam Neck exam: Positive for: Normal Inspection - Respiratory Exam Respiratory Exam: Clear to Auscultation Bilateral, NORMAL BREATHING PATTERN. absent: Accessory Muscle Use, Chest Wall Tenderness, Rales, Rhonchi, Wheezes, Respiratory Distress Additional comments: Pain is not reproducible on exam. - Cardiovascular Exam Cardiovascular Exam: REGULAR RHYTHM, +S1, +S2 - GI/Abdominal Exam GI & Abdominal Exam: Normal Bowel Sounds, Soft. absent: Distended, Firm, Guarding, Rebound, Rigid, Tenderness - Extremities Exam Extremities exam: Positive for: full ROM, normal capillary refill, normal inspection, pedal pulses present. Negative for: calf tenderness, tenderness Additional comments: No swelling of the lower extremities. - Neurological Exam Neurological exam: Alert, CN II-XII Intact, Oriented x3, Reflexes Normal - Psychiatric Exam Psychiatric exam: Normal Affect, Normal Mood - Skin Skin Exam: Dry, Intact, Normal Color, Warm Results - Vital Signs Recent Vital Signs: Last Vital Signs Temp 98 F 11/20/18 06:13 Pulse 72 11/20/18 06:13 Resp 18 11/20/18 06:13 BP 121/69 11/20/18 06:13 Pulse Ox 98 11/20/18 06:13 - Labs Result Diagrams: 11/20/18 02:50 11/20/18 02:50 Labs: Laboratory Results - last 24 hr 11/20/18 11/20/18 11/20/18 02:50 02:50 02:50 WBC 9.1 RBC 4.02 Hgb 12.7 Hct 36.9 MCV 91.8 MCH 31.6 MCHC 34.4 RDW 14.7 H Plt Count 273 MPV 9.9 Neut % (Auto) 52.9 Lymph % (Auto) 35.1 H [place] % (Auto) 8.6 H Eos % (Auto) 3.2 Baso % (Auto) 0.2 Lymph # (Auto) 3.2 [place] # (Auto) 0.8 H Eos # (Auto) 0.3 Baso # (Auto) 0.02 Absolute Neuts (auto) 4.82 D-Dimer, Quantitative Sodium 139 Potassium 4.0 Chloride 105 Carbon Dioxide 24 Anion Gap 13 BUN 13 Creatinine 0.6 L Est GFR ( Amer) > 60 Est GFR (Non-Af Amer) > 60 Random Glucose 106 Calcium 10.0 Total Bilirubin 0.3 AST 31 ALT 27 Alkaline Phosphatase 49 Troponin I < 0.01 Total Protein 8.2 Albumin 4.4 Globulin 3.8 Albumin/Globulin Ratio 1.1 Urine Color Urine Appearance Urine pH Ur Specific [place] Urine Protein Urine Glucose (UA) Urine Ketones Urine Blood Urine Nitrate Urine Bilirubin Urine Urobilinogen Ur Leukocyte Esterase Urine RBC Urine WBC Ur Epithelial Cells Urine Bacteria Urine Opiates Screen Negative Urine Methadone Screen Negative Ur Barbiturates Screen Negative Ur Phencyclidine Scrn Negative Ur Amphetamines Screen Negative U Benzodiazepines Scrn Negative U Oth Cocaine Metabols Negative U Cannabinoids Screen Negative 11/20/18 11/20/18 02:50 03:35 WBC RBC Hgb Hct MCV MCH MCHC RDW Plt Count MPV Neut % (Auto) Lymph % (Auto) [place] % (Auto) Eos % (Auto) Baso % (Auto) Lymph # (Auto) [place] # (Auto) Eos # (Auto) Baso # (Auto) Absolute Neuts (auto) D-Dimer, Quantitative < 200 Sodium Potassium Chloride Carbon Dioxide Anion Gap BUN Creatinine Est GFR ( Amer) Est GFR (Non-Af Amer) Random Glucose Calcium Total Bilirubin AST ALT Alkaline Phosphatase Troponin I Total Protein Albumin Globulin Albumin/Globulin Ratio Urine Color Yellow Urine Appearance Sl cloudy Urine pH 6.0 Ur Specific [place] >= 1.030 Urine Protein Negative Urine Glucose (UA) Negative Urine Ketones Negative Urine Blood Trace-lysed H Urine Nitrate Positive H Urine Bilirubin Negative Urine Urobilinogen 0.2 Ur Leukocyte Esterase Trace H Urine RBC 0 - 2 Urine WBC 2 - 5 Ur Epithelial Cells 4 - 5 Urine Bacteria Many Urine Opiates Screen Urine Methadone Screen Ur Barbiturates Screen Ur Phencyclidine Scrn Ur Amphetamines Screen U Benzodiazepines Scrn U Oth Cocaine Metabols U Cannabinoids Screen Assessment & Plan - Assessment and Plan (Free Text) Assessment: Patient is a 43-year-old F with PMHx of thombophlebitis (Patient was diagnosed in [facility] 10 months ago) who presented to [facility] ED for chest pain for one day in duration. Patient admitted for chest pain - r/o ACS. Plan: Chest Pain - r/o ACS - trop negative x1; trend trops - CPK q4 - repeat EKG ordered - EKG in ED: NSR. Incomplete R-bundle branch block. - Cardiology consulted (Dr. Forbes) - TSH - Lipid Panel - A1c - D-dimer negative - Toradol for pain - Utox negative Generalized symptoms of headache and nausea - CT Head negative - Toradol for pain control - zofran prn for nausea - Hx of sick contacts - son Hx of Thrombophlebitis - D-dimer negative - Not on any medications Dispo: Will monitor patient on the floor. Follow up further recommendations from Cardiology. Case was discussed and reviewed with Attending Physician, Dr. Arambula
[2018-11-20 06:40] LABS: HDL CHOLESTEROL 49 mg/dL (29-60)
[2018-11-20 06:51] LABS: LDL CHOLESTEROL 86 mg/dL (0-129)
[2018-11-20 07:41] VITALS: BP 123/70; PULSE 74; RESP 20; TEMP 98.1; O2SAT 99
[2018-11-20 08:35] LABS: TROPONIN I < 0.01 ng/mL
--- NOTE | 2018-11-20 09:02 | CT ---
Date of service: 11/20/2018 PROCEDURE: CT HEAD WITHOUT CONTRAST. HISTORY: headache COMPARISON: Comparison is made to the previous study dated 08/04/2018 previous MRI dated 08/04/2018 TECHNIQUE: Axial computed tomography images were obtained through the head/brain without intravenous contrast. Radiation dose: Total exam DLP = 955.82 mGy-cm. This CT exam was performed using one or more of the following dose reduction techniques: Automated exposure control, adjustment of the mA and/or kV according to patient size, and/or use of iterative reconstruction technique. FINDINGS: HEMORRHAGE: No intracranial hemorrhage. BRAIN: No mass effect or edema. No atrophy or chronic microvascular ischemic changes. VENTRICLES: Unremarkable. No hydrocephalus. CALVARIUM: Unremarkable. PARANASAL SINUSES: Unremarkable as visualized. No significant inflammatory changes. MASTOID AIR CELLS: Unremarkable as visualized. No inflammatory changes. OTHER FINDINGS: None. IMPRESSION: No evidence of acute intracranial hemorrhage intracranial collection mass effect or midline shift. Preliminary report contains concordant findings was submitted by [facility] Radiology.
[2018-11-20] MEDS ORDERED: Enoxaparin 40 mg Syringe SC SCH (10:00)
[2018-11-20 11:31] LABS: TROPONIN I < 0.01 ng/mL
--- NOTE | 2018-11-20 11:31 | RAD ---
Date of service: 11/20/2018 HISTORY: chest pain COMPARISON: Comparison is made with 08/04/2018 FINDINGS: LUNGS: No active pulmonary disease. PLEURA: No significant pleural effusion identified, no pneumothorax apparent. CARDIOVASCULAR: No aortic atherosclerotic calcification present. Normal cardiac size. No pulmonary vascular congestion. OSSEOUS STRUCTURES: No significant abnormalities. VISUALIZED UPPER ABDOMEN: Normal. OTHER FINDINGS: None. IMPRESSION: No active disease.
[2018-11-20 15:45] LABS: TROPONIN I < 0.01 ng/mL
--- NOTE | 2018-11-20 20:22 | CARD ---
APPROVED REPORT Date of service: 11/20/2018 EKG Measurement Heart [id number] <Conclusion> Normal sinus rhythm Normal Electrocardiogram
--- NOTE | 2018-11-20 22:43 | CON ---
DATE: 11/20/[address] Remington Forbes. REASON FOR CONSULTATION: Chest pain, cardiac evaluation, history of DVT, history of liposuction, history of appendectomy. HISTORY OF PRESENT ILLNESS: This is a 43-year-old female with a past medical history significant for liposuction in [place] complicated by DVT of left lower extremity, history of appendectomy 3 months ago, who came in with chest pain. Denies any shortness of breath or any palpitation. Chest pain is tenderness on the left side of the chest appears to be more musculoskeletal. Denies any history of chest pain or dyspnea on exertion. PAST MEDICAL HISTORY: Significant for history of liposuction a year ago in [place] complicated by DVT and PE, history of appendectomy, appendicitis, followed by appendectomy on July 2011 three months ago. SOCIAL HISTORY: Denies any history of alcohol abuse. CURRENT MEDICATION: The patient at home does not take any regular medication. LABORATORY DATA: Recent cardiac workup as follows: The patient had EKG on the last admission on 08/05/2018,that showed sinus hao with sinus arrhythmia, clockwise rotation of the nonischemic ST-T changes noted. The patient had an echocardiographic on 08/05/2018 that shows ejection fraction of 55%, normal right ventricle, normal IV function, normal left ventricle function, normal aortic valve structure, normal mitral valve structure, trace to mild mitral regurgitation, mild tricuspid regurgitation on systolic pressure 28%, calculated ejection fraction 55%. REVIEW OF SYSTEMS: As per HPI. PHYSICAL EXAMINATION: GENERAL: Height of the patient is 5 feet 6 inches, weight is 196 pounds, mass index 32 kg/m2. VITAL SIGNS: Rest of the vitals; temperature afebrile, heart rate 74, and blood pressure 123/70. HEENT: PERRLA. Extraocular muscles intact. NECK: Supple. No carotid bruit or thyromegaly. CHEST: Clear to auscultation. HEART: S1 and S2 regular. ABDOMEN: Soft. EXTREMITIES: Clubbing and cyanosis negative. LABORATORY DATA: Blood workup as follows; WBC 9.0, hemoglobin 12.7, hematocrit 36.9, and platelet count 273. Chemistry shows sodium 139, potassium 4, chloride 105, carbon dioxide 24, anion gap of 13, BUN 13, and creatinine 0.9, troponin is 0.01. Atypical chest pain, very tender on the left-sided of the chest, when taking a deep breath, it hurts also and coughing it hurts. IMPRESSION: A 43-year-old female with past medical history of liposuction complicated by deep venous thrombosis in [place], left lower extremity, history of appendectomy, admitted with chest pain atypical tenderness appears to more musculoskeletal. Recent echo on last admission when the patient has appendectomy essentially shows normal echo, normal left ventricular function test, mild mitral regurgitation, mild tricuspid regurgitation. RECOMMENDATION: We will start some analgesic, ibuprofen. The patient is going for duplex scan preliminary reviewed while the patient is being done appears to be negative for DVT and PE after having liposuction. Currently the patient is not on any anticoagulation. Recommendation, add analgesics, lipid profile, TSH, hemoglobin A1c. For risk stratification, consider stress as outpatient or chest pain appears very atypical musculoskeletal . We will transfer the care to Dr. Remington Forbes when the patient remained in the hospital. Thank you Dr. Arambula for providing an opportunity in taking care of the patient, Winter Gamble. Carmen Storm MD CC: Didier Arambula
--- NOTE | 2018-11-20 22:59 | CARD ---
APPROVED REPORT Date of service: 11/20/2018 EKG Measurement Heart [id number] <Conclusion> Normal sinus rhythm Leftward axis Normal ECG
--- NOTE | 2018-11-21 00:53 | DS ---
HISTORY OF PRESENT ILLNESS: The patient was seen and examined in room 365, bed 2. The patient's past medical history, all details of medical history is as per the history of physical examination dictated by the emergency medical service manager. The patient is seen lying in the bed. The patient has been at bedside. The patient is comfortable. Complaining of lower sternal lateral edge tenderness which on examination, which is palpable to touch. PAST MEDICAL HISTORY: Text. FAMILY HISTORY: Text. HABITS: REVIEW OF SYSTEMS: Text. PHYSICAL EXAMINATION: VITAL SIGNS: T-max 98.1, pulse 72 to 74, blood pressure 123/70, respiration 20, O2 sat 99%. HEENT: Head is normocephalic, atraumatic. HEENT examination shows pink conjunctivae. Anicteric sclerae. No oropharyngeal lesion. Dry oral mucosa. NECK: No neck rigidity. CHEST: Kyphosis. LUNGS: Shows no audible crackle, rales or wheezing. CARDIOVASCULAR: S1, S2. Regular rhythm. No audible murmur, gallop or rub. Positive palpable tenderness of the lower sternal costochondral tenderness. palpable to touch. ABDOMEN: Abdomen: Soft. Positive bowel sound. No palpable hepatosplenomegaly. Abdominal examination also shows surgical scar of the tummy tuck which is in the suprapubic area and appendectomy surgical scar. GENITALIA: Female. RECTAL: Deferred. EXTREMITY: Show no pitting edema, no calf tenderness, no Homans' sign. NEUROLOGIC: The patient is alert, awake, responsive, is able to move upper and lower extremity without assistance. Gait examination is not tested. LABORATORY DATA: CBC reviewed which is normal. D-dimer is negative. Chemistry is within normal limit. Troponin is negative. Lipid profile, TSH, beta hCG was reviewed. Urinalysis reviewed. Urine drug screen was negative. EKG, chest x-ray, CT head all were reviewed. FINAL IMPRESSION, PLAN, AND DISCHARGE DIAGNOSES: 1. Atypical chest pain in the left lower rib cage costochondral . 2. History of tummy duct and liposuction and appendectomy. 3. History of thrombophlebitis. 4. History of thrombophlebitis versus deep venous thrombosis of the left lower extremity. 5. History of costochondritis. PLAN: At this time, the patient will be cleared for discharge after the patient's venous Doppler is negative and if after the patient is cleared by Cardiology for discharge. The patient's discharge followup with Dr. Arambula with this week. The patient's clinical condition, diagnosis, test results, all details discussed at length with the patient and the patient's spouse was present at the bedside. All questions concerned answered. Dictated and electronically signed, not read. Didier Arambula MD
[2018-11-21] MEDS ORDERED: Pantoprazole 40 mg EC Tab PO SCH (06:00)
--- NOTE | 2018-11-21 20:24 | US ---
HISTORY: Leg pain and swelling. Evaluate for DVT PHYSICIAN(S): Remingtno Zee MD. TECHNIQUE: Duplex sonography and color-flow Doppler with graded compression were used to evaluate the deep venous systems of both lower extremities. FINDINGS: The visualized deep venous systems of both lower extremities are sonographically normal and compressible. Normal wave forms and augmentation are seen. There is no sonographic evidence for deep venous thrombosis in the visualized segments of both lower extremities. IMPRESSION: No sonographic evidence for deep venous thrombosis in the visualized segments of both lower extremities.
== END 2018-11-20 15:58 | disposition home or self-care (01) ==
LOC: ED 01:05 → ERH 05:20 → 3RNO 06:45
PROVIDERS: ADMIT Internal Medicine; ATTEND Internal Medicine
DX: R07.89 Other chest pain (principal); K08.89 Other specified disorders of teeth and supporting structures; I08.1 Rheumatic disorders of both mitral and tricuspid valves; Z86.718 Personal history of other venous thrombosis and embolism; Z90.49 Acquired absence of other specified parts of digestive tract; Z98.891 History of uterine scar from previous surgery; Z86.72 Personal history of thrombophlebitis; Z83.3 Family history of diabetes mellitus
CPT/HCPCS: 36415; 70450; 71045; 80053; 80061; 81001; 81025; 82550; 83036; 84443; 84484; 84702; 85025; 85378; 87086; 87181; 93005; 93970; 96372; 96374; 99283; G0378; G0480; J1650; J1885